=== PATIENT | female | born 1960 | race Caucasian/White ===

== ENCOUNTER 2020-03-24 11:36 | Outpatient (REF) | payer OTHER, SELFPAY ==
[2020-03-24 12:26] LABS: Hematocrit 42.7 % (37-47); Hemoglobin 14.1 g/dl (12.0-16.0); Mean Corpuscular Hemoglobin 32.1 pg (27.0-33.0); Mean Corpuscular Volume 97.3 fL (80-98); Mean Platelet Volume 10.1 fL (9.4-12.3); Platelet Count 311 X10*3/uL (160-400); Red Blood Count 4.39 X10*6/uL (4.20-5.50); Red Cell Distribution Width 14.2 % (11.0-16.0); White Blood Count 7.5 X10*3/uL (4.8-10.8)
[2020-03-24 13:32] LABS: Alanine Aminotransferase 98 U/L (0-31); Albumin Level 4.7 g/dL (3.5-5.0); Alkaline Phosphatase 61 U/L (39-117); Anion Gap 14 (12-20); Aspartate Amino Transferase 53 U/L (5-31); Bilirubin Direct 0.3 mg/dL (0.0-0.5); Blood Urea Nitrogen 19 mg/dL (9-16); Calcium 9.7 mg/dL (8.4-10.2); Carbon Dioxide 27 mmol/L (22-29); Chloride 105 mmol/L (96-108); Cholesterol 157 mg/dL; Estimated Glomerular Filt Rate 53; Glucose Fasting 91 mg/dL (60-99); HDL Cholesterol 56 mg/dL; LDL Cholesterol Calculated 83 mg/dl; Magnesium 2.3 mg/dL (1.6-2.6); Potassium 4.7 mmol/l (3.3-5.1); Sodium 141 mmol/L (135-145); Total Protein 7.4 g/dL (6.5-8.0); Triglycerides 90 mg/dL
[2020-03-24 13:56] LABS: Thyroid Stimulating Hormone 14.64 mIU/mL (0.32-4.0); Vitamin D 25-OH Total 32.3 ng/mL (>30)
== END 2020-03-24 11:37 | disposition home or self-care (01) ==
LOC: HO.LAB 11:36
DX: R53.83 Other fatigue (principal); E78.5 Hyperlipidemia, unspecified; I10 Essential (primary) hypertension
CPT/HCPCS: 36415; 80053; 80061; 80076; 82248; 82306; 83735; 84439; 84443; 85027

== ENCOUNTER 2020-04-22 12:16 | Outpatient (REF) | payer OTHER, SELFPAY ==
[2020-04-22 14:28] LABS: Free T4 (Free Thyroxine) 1.56 ng/dL (0.71-1.85)
== END 2020-04-22 12:17 | disposition home or self-care (01) ==
LOC: HO.LAB 12:16
DX: E03.9 Hypothyroidism, unspecified (principal)
CPT/HCPCS: 84439; 84443

== ENCOUNTER 2021-01-09 10:08 | Outpatient (REF) | payer OTHER, SELFPAY ==
[2021-01-09 11:33] LABS: MANUAL DIFF FLAG NO
[2021-01-09 11:48] LABS: Basophils Percent Auto 0.2 % (0-2); Eosinophils Absolute Auto 0.1 X10*3/uL (0.0-0.4); Eosinophils Percent Auto 1.6 % (0-4); Hematocrit 44.3 % (37-47); Hemoglobin 14.2 g/dl (12.0-16.0); Imm Gran Abs Auto 0.01 X10*3/uL (0.00-0.03); Imm Gran Pct Auto 0.2 % (0.0-0.4); Lymphocytes Percent Auto 31.4 % (20-40); Mean Corpuscular HGB Conc 32.1 g/dl (31.0-35.0); Mean Corpuscular Hemoglobin 30.9 pg (27.0-33.0); Mean Corpuscular Volume 96.3 fL (80-98); Mean Platelet Volume 10.4 fL (9.4-12.3); Monocytes Absolute Auto 0.6 X10*3/uL (0.1-1.2); Neutrophils Absolute Auto 3.6 X10*3/uL (2.0-8.3); Neutrophils Percent Auto 56.6 % (45-73); Platelet Count 284 X10*3/uL (160-400); Red Cell Distribution Width 13.3 % (11.0-16.0); White Blood Count 6.3 X10*3/uL (4.8-10.8)
[2021-01-09 12:31] LABS: Alanine Aminotransferase 43 U/L (0-31); Albumin Level 4.4 g/dL (3.5-5.0); Alkaline Phosphatase 86 U/L (39-117); Anion Gap 15 (12-20); Aspartate Amino Transferase 26 U/L (5-31); Bilirubin Total 0.6 mg/dL (0.0-1.0); Blood Urea Nitrogen 15 mg/dL (9-16); Calcium 9.5 mg/dL (8.4-10.2); Carbon Dioxide 26 mmol/L (22-29); Chloride 106 mmol/L (96-108); Cholesterol 157 mg/dL; Estimated Glomerular Filt Rate > 60; Glucose Fasting 90 mg/dL (60-99); HDL Cholesterol 56 mg/dL; LDL Cholesterol Calculated 86 mg/dl; Potassium 4.5 mmol/L (3.3-5.1); Sodium 142 mmol/L (135-145); Triglycerides 77 mg/dL
[2021-01-09 12:52] LABS: Thyroid Stimulating Hormone 0.04 uIU/mL (0.32-4.0)
== END 2021-01-09 10:09 | disposition home or self-care (01) ==
LOC: HO.LAB 10:08
PROVIDERS: PCP Internal Medicine; Visit Provider Internal Medicine
DX: Z00.00 Encounter for general adult medical examination without abnormal findings (principal); E03.9 Hypothyroidism, unspecified; E11.9 Type 2 diabetes mellitus without complications
CPT/HCPCS: 36415; 80053; 80061; 84443; 85025

== ENCOUNTER 2021-02-27 11:04 | Outpatient (REF) | payer OTHER, SELFPAY ==
--- NOTE | ~2021-02-27 | CT_ITS ---
EXAMINATION: CT HEAD WITHOUT CONTRAST CLINICAL INFORMATION: Altered mental status. COMPARISON: CT brain 08/11/2013 TECHNIQUE: Contiguous axial imaging was performed from the skull base to vertex without intravenous administration of contrast. This CT examination was performed using dose optimization techniques as appropriate, variously including the following: *Automated exposure control *Adjustment of mA and/or kV according to patient size (this includes techniques or standardized protocols for targeted exams where dose is matched to indication/reason for exam; i.e. extremities or head) *Use of iterative reconstruction technique DLP: 679. mGy-cm FINDINGS: There is no evidence of acute intracranial hemorrhage or territorial infarction. No abnormal mass effect or midline shift is seen. Harper to white matter differentiation is well preserved. No extra-axial fluid collections are identified. The ventricles are normal in size. There is no abnormal attenuation within the brain parenchyma. The osseous structures and soft tissues are normal. The mastoid air cells and visualized portions of the paranasal sinuses are well aerated. CT/CT head/brain wo con IMPRESSION: No acute intracranial process seen.
== END 2021-02-27 11:05 | disposition home or self-care (01) ==
LOC: HO.CT 11:04
PROVIDERS: Visit Provider Internal Medicine
DX: R41.82 Altered mental status, unspecified (principal)
CPT/HCPCS: 70450

== ENCOUNTER 2021-03-07 10:47 | Emergency (ER) | payer OTHER, SELFPAY ==
--- NOTE | ~2021-03-07 | CT_ITS ---
EXAMINATION: CT BRAIN AND CT CERVICAL SPINE WITHOUT CONTRAST. CLINICAL INFORMATION: Fall. COMPARISON: None TECHNIQUE: 5 mm thin axial and reformatted 2 mm thin sagittal and coronal images of brain were obtained. Subsequently 3 mm thin axial and reformatted 2 mm thin sagittal coronal images of cervical spine were obtained. DLP 900. FINDINGS: Brain: There is no acute intra-axial, extra-axial bleed, masses or midline shift. There is no acute infarction in evolution. There is no acute infarction evolution. The lateral ventricles are symmetrical in size and configuration without enlargement. Bone windows reveal no calvarial abnormality. Bilateral paranasal sinuses and mastoid air cells are well-aerated. There is no scalp soft tissue abnormality. Cervical spine: There is mild straightening of cervical lordosis. The vertebral heights, alignment is normal. There is mild loss of C4-C5 and C5-C6 disc heights with posterior spondylosis. Rest the disc heights are normal. The craniovertebral junction and C1-C2 alignment is normal. There is no visible acute fracture, dislocation or subluxation. The prevertebral and paravertebral soft tissues are normal. No abnormal size neck lymph nodes seen. Submandibular and parotid glands are symmetrical. The airway is widely patent. The lung apices are clear. CT/CT cervical spine wo con IMPRESSION: No acute intracranial process seen. There is no acute fracture, dislocation or subluxation seen. There is mild spondylosis and mild degenerative disc changes at C4-C5 and C5-C6 disc levels.
--- NOTE | ~2021-03-07 | CT_ITS ---
EXAMINATION: CT BRAIN AND CT CERVICAL SPINE WITHOUT CONTRAST. CLINICAL INFORMATION: [place]. COMPARISON: None TECHNIQUE: 5 mm thin axial and reformatted 2 mm thin sagittal and coronal images of brain were obtained. Subsequently 3 mm thin axial and reformatted 2 mm thin sagittal coronal images of cervical spine were obtained. DLP 900. FINDINGS: Brain: There is no acute intra-axial, extra-axial bleed, masses or midline shift. There is no acute infarction in evolution. There is no acute infarction evolution. The lateral ventricles are symmetrical in size and configuration without enlargement. Bone windows reveal no calvarial abnormality. Bilateral paranasal sinuses and mastoid air cells are well-aerated. There is no scalp soft tissue abnormality. Cervical spine: There is mild straightening of cervical lordosis. The vertebral heights, alignment is normal. There is mild loss of C4-C5 and C5-C6 disc heights with posterior spondylosis. Rest the disc heights are normal. The craniovertebral junction and C1-C2 alignment is normal. There is no visible acute fracture, dislocation or subluxation. The prevertebral and paravertebral soft tissues are normal. No abnormal size neck lymph nodes seen. Submandibular and parotid glands are symmetrical. The airway is widely patent. The lung apices are clear. CT/CT head/brain wo con IMPRESSION: No acute intracranial process seen. There is no acute fracture, dislocation or subluxation seen. There is mild spondylosis and mild degenerative disc changes at C4-C5 and C5-C6 disc levels.
[2021-03-07 11:00] VITALS: BP 101/63; BP 74/00; PULSE 67; PULSE 71; RESP 16; TEMP 36.6; O2SAT 100; BMI 30.8
--- NOTE | 2021-03-07 11:11 | ECG_ITS ---
Test Reason : DIZZINESS Blood Pressure : / mmHG Vent. Rate : 066 BPM Atrial Rate : 066 BPM P-R Int : 176 ms QRS Dur : 088 ms QT Int : 448 ms P-R-T Axes : 046 -43 -30 degrees QTc Int : 469 ms Normal sinus rhythm Left axis deviation Moderate voltage criteria for LVH, may be normal variant Nonspecific ST and T wave abnormality Prolonged QT Abnormal ECG No previous ECGs available Referred By: Laurie Jones Electronically Signed By:EDA SAN
--- NOTE | 2021-03-07 11:13 | ED.SYNCOPE ---
HPI - Syncope General Chief Complaint: Dizziness Stated Complaint: hypotension Time Seen by Provider: 03/07/21 11:03 Source: patient and EMS Mode of arrival: EMS Limitations: no limitations History of Present Illness complaint: almost passed out and collapsed Onset (ago): minute(s) -: minutes(s) Description of event: post-event confusion (difficulty finding words) Prodromal symptoms: vision changes, lightheaded and other (diffuse weakness) Witnessed: Yes - by Bystander Context: standing up Injuries sustained associated with event: none Current symptoms: other (feels better but reports for the last week she has been dealing with low back pain and a mild headache) Treatments prior to arrival: IV fluids (EMS notes initial BP in 70s now up to 100 after 200mL of NS) Related Data Home Medications Medication Instructions Recorded Confirmed zolpidem 10 mg tablet 10 mg PO BEDTIME PRN 07/26/20 01/16/21 Previous Rx's Medication Instructions Recorded duloxetine 20 mg capsule,delayed 20 mg PO DAILY #90 cap 07/29/20 release ezetimibe 10 mg tablet 10 mg PO DAILY #90 tab 08/10/20 levothyroxine 150 mcg tablet 150 mcg PO DAILY #90 tab 08/11/20 atorvastatin 80 mg tablet 80 mg PO DAILY #90 tab 12/06/20 clonazepam 0.5 mg tablet 0.5 mg PO BID #60 tab 02/03/21 naproxen 500 mg tablet (Naprosyn) 500 mg PO BID PRN #60 tab 03/06/21 Allergies Allergy/AdvReac Type Severity Reaction Status Date / Time No Known Allergies Allergy Verified 01/16/21 13:50 Review of Systems Review of Systems: Constitutional : No Weight loss, No Fever, No Chills, No Fatigue, No Malaise ENT/Mouth : No sore throat, No Rhinorrhea Eyes: No Eye Pain, No Swelling, No Redness Cardiovascular : No Chest Pain, No SOB, No Dyspnea on Exertion, No Orthopnea, No Edema, No Palpitations Respiratory : No Cough, No Sputum, No Wheezing Gastrointestinal : No Nausea, No Vomiting, No Diarrhea, No Constipation, No abdominal Pain, No Hematochezia, No Melena Genitourinary : No Dysuria, No Urinary Frequency, No Hematuria, Musculoskeletal : No joint pain, No Myalgias, No Joint Swelling, pos back pain Skin : No Skin Lesions, No rash Neuro :pos Weakness, No Numbness, No Dizziness, No Headache, pos near syncope Psych : No Anxiety/Panic, No Depression Heme/Lymph: No Bruising, No Bleeding,No Lymphadenopathy Endocrine : No Polyuria, No Polydipsia All other systems reviewed and are negative [facility] Past Medical History Attestation statement: The following information was validated with the patient. Medical History Hyperlipidemia Hypothyroidism Surgical History History of thyroidectomy Family History Family History (Updated 01/16/21 @ 13:49 by Flor Cote [place]) Father No problems noted. Mother No problems noted. Social History Social History Housing: House Alcohol intake: current Alcohol intake frequency: a few times a week Patient Tobacco Use Status: Current everyday Tobacco user Tobacco use type: Smokeless Tobacco e-Cigarette/Vaping Use: Currently Using Second Hand Smoke Exposure: No Use of substances other than those prescribed or required for medical reasons: No Advance Directives: Yes Advance Directives Information Provided: Yes Advance Directives on File: No service: No Current occupational status: unemployed Physical Exam Vital Signs: Vital Signs: Last Vital Signs Temp 95.1 F L 03/07/21 13:50 Pulse 65 03/07/21 13:50 Resp 12 03/07/21 13:50 BP 93/62 03/07/21 13:50 Pulse Ox 100 03/07/21 12:00 Body Mass Index 30.8 Appearance: appears drowsy Oriented X3. No acute distress. Eyes: Pupils equal, round and reactive to light. ENT: Pharynx normal. Neck: Normal inspection. Neck supple. collar removed negative for pain CVS: Normal heart rate and rhythm. Pulses normal. Respiratory: No respiratory distress. Breath sounds normal. Abdomen: Soft and non-tender. Skin: Skin warm and dry. Normal skin color. Normal skin turgor. Extremities: No lower extremity edema. No calf ttp Neuro: Oriented X 3. No motor deficit. No sensory deficit. NIH Stroke Scale Internal: Initial- Upon Arrival Level of Consciousness: Alert Level of Consciousness Questions: Answers both questions correctly Level of Consciousness Commands: Performs both tasks correctly Best Gaze: Normal Visual: No visual loss Facial Palsy: Normal Motor Arm (Right): No drift Motor Arm (Left): No drift Motor Leg (Right): No drift Motor Leg (Left): No drift Limb Ataxia: Absent Sensory: Normal Best Language: No aphasia Dysarthia: Normal Extinction and Inattention: No abnormality Score: 0 Course Course Course Narrative: patient's now notes that she might have taken her daughter's medications - 400mg seroquel, amantadine, topiramate, ativan. The is going to go home and see if pills are missing from her daughter's pill box confirms the patient accidentally took her daughter's saturday night pills - seroquel 400mg, topiramate 100, ativan 1, lamictal 150 Patient placed in physician observation at 126pm. The indication for observation is that the patient needs more time to metabolize medications. At this time the patient is well developed well nourished, lungs clear, CV RRR, abd nontender, neuro is intact. signed out pending improvement MDM - Syncope MDM Narrative Medical decision making narrative: 60 yo female with hx of HLD, hypothyroidism, on chronic clonazepam comes in with c/o near syncope with prodrome then found to have low BP as well as her speech was slow but she is fluent now and has no deficits. She does appear sedated. At this time labs, EKG, IVF, CT head/neck ordered. Unsure if this is medication related. Lab Data Result diagrams: 03/07/21 11:32 03/07/21 11:32 Labs: Lab Results 03/07/21 03/07/21 03/07/21 Range/Units 11:32 11:32 11:32 WBC 4.8 (4.8-10.8) X10*3/uL RBC 4.14 L (4.20-5.50) X10*6/uL Hgb 12.9 (12.0-16.0) g/dl Hct 39.8 (37-47) % MCV 96.1 (80-98) fL MCH 31.2 (27.0-33.0) pg MCHC 32.4 (31.0-35.0) g/dl RDW 12.8 (11.0-16.0) % Plt Count 287 (160-400) X10*3/uL MPV 9.9 (9.4-12.3) fL Immature Gran % (Auto) 0.2 (0.0-0.4) % Neut % (Auto) 67.2 (45-73) % Lymph % (Auto) 22.2 (20-40) % [place] % (Auto) 7.1 (2-11) % Eos % (Auto) 3.1 (0-4) % Baso % (Auto) 0.2 (0-2) % Lymph # (Auto) 1.1 L (1.2-4.9) X10*3/uL [place] # (Auto) 0.3 (0.1-1.2) X10*3/uL Eos # (Auto) 0.2 (0.0-0.4) X10*3/uL Baso # (Auto) 0.0 (0.0-0.2) X10*3/uL Abs Immat Gran (auto) 0.01 (0.00-0.03) X10*3/uL Absolute Neuts (auto) 3.2 (2.0-8.3) X10*3/uL Absolute Nucleated RBC 0.000 (0.0-0.012) X10*3/uL Nucleated RBC % (auto) 0.0 (0.0-0.2) /100WBC Sodium 141 (135-145) mmol/L Potassium 4.5 (3.3-5.1) mmol/L Chloride 109 H (96-108) mmol/L Carbon Dioxide 25 (22-29) mmol/L Anion Gap 12 (12-20) BUN 11 (9-16) mg/dL Creatinine 0.86 (0.5-1.4) mg/dL Estim Creat Clear Calc 67.3 Estimated GFR > 60 Random Glucose 120 H (60-115) mg/dL Calcium 9.3 (8.4-10.2) mg/dL Magnesium 2.2 (1.6-2.6) mg/dL Total Bilirubin 0.9 (0.0-1.0) mg/dL Direct Bilirubin 0.3 (0.0-0.5) mg/dL AST 17 (5-31) U/L ALT 29 (0-31) U/L Alkaline Phosphatase 73 (39-117) U/L Total Creatine Kinase 55 (26-140) U/L Troponin I High Sens (<3.5-17.0) ng/L Total Protein 6.5 (6.5-8.0) g/dL Albumin 4.1 (3.5-5.0) g/dL Lipase 29 (8-78) U/L Urine Color Urine Appearance Urine pH (5.0-8.0) Ur Specific [place] (1.005-1.025) Urine Protein (NEG-TRACE) MG/DL Urine Glucose (UA) (NEG) MG/DL Urine Ketones (NEG) MG/DL Urine Blood (NEG) Urine Nitrite (NEG) Ur Leukocyte Esterase (NEG) Urine RBC (0) /HPF Urine WBC (0-4) /HPF Ur Squamous Epith Cells /LPF Amorphous Sediment /LPF Urine Bacteria /LPF Urine Opiates Screen (Not Detect) Urine Fentanyl Screen (Not Detect) Ur Barbiturates Screen (Not Detect) Ur Phencyclidine Scrn (Not Detect) Ur Amphetamines Screen (Not Detect) U Benzodiazepines Scrn (Not Detect) Urine Cocaine Screen (Not Detect) U Marijuana (THC) Screen (Not Detect) Ethyl Alcohol mg/dL COVID-19 (MARIAM) Negative (Negative) COVID-19 Clin Com See Note 03/07/21 03/07/21 03/07/21 Range/Units 11:32 11:32 12:41 WBC (4.8-10.8) X10*3/uL RBC (4.20-5.50) X10*6/uL Hgb (12.0-16.0) g/dl Hct (37-47) % MCV (80-98) fL MCH (27.0-33.0) pg MCHC (31.0-35.0) g/dl RDW (11.0-16.0) % Plt Count (160-400) X10*3/uL MPV (9.4-12.3) fL Immature Gran % (Auto) (0.0-0.4) % Neut % (Auto) (45-73) % Lymph % (Auto) (20-40) % [place] % (Auto) (2-11) % Eos % (Auto) (0-4) % Baso % (Auto) (0-2) % Lymph # (Auto) (1.2-4.9) X10*3/uL [place] # (Auto) (0.1-1.2) X10*3/uL Eos # (Auto) (0.0-0.4) X10*3/uL Baso # (Auto) (0.0-0.2) X10*3/uL Abs Immat Gran (auto) (0.00-0.03) X10*3/uL Absolute Neuts (auto) (2.0-8.3) X10*3/uL Absolute Nucleated RBC (0.0-0.012) X10*3/uL Nucleated RBC % (auto) (0.0-0.2) /100WBC Sodium (135-145) mmol/L Potassium (3.3-5.1) mmol/L Chloride (96-108) mmol/L Carbon Dioxide (22-29) mmol/L Anion Gap (12-20) BUN (9-16) mg/dL Creatinine (0.5-1.4) mg/dL Estim Creat Clear Calc Estimated GFR Random Glucose (60-115) mg/dL Calcium (8.4-10.2) mg/dL Magnesium (1.6-2.6) mg/dL Total Bilirubin (0.0-1.0) mg/dL Direct Bilirubin (0.0-0.5) mg/dL AST (5-31) U/L ALT (0-31) U/L Alkaline Phosphatase (39-117) U/L Total Creatine Kinase (26-140) U/L Troponin I High Sens < 3.5 (<3.5-17.0) ng/L Total Protein (6.5-8.0) g/dL Albumin (3.5-5.0) g/dL Lipase (8-78) U/L Urine Color YELLOW Urine Appearance HAZY Urine pH 7.0 (5.0-8.0) Ur Specific [place] 1.010 (1.005-1.025) Urine Protein NEG (NEG-TRACE) MG/DL Urine Glucose (UA) NEG (NEG) MG/DL Urine Ketones NEG (NEG) MG/DL Urine Blood NEG (NEG) Urine Nitrite NEG (NEG) Ur Leukocyte Esterase 1+ H (NEG) Urine RBC 0 (0) /HPF Urine WBC 1-4 (0-4) /HPF Ur Squamous Epith Cells 1+ /LPF Amorphous Sediment 1+ /LPF Urine Bacteria TRACE /LPF Urine Opiates Screen (Not Detect) Urine Fentanyl Screen (Not Detect) Ur Barbiturates Screen (Not Detect) Ur Phencyclidine Scrn (Not Detect) Ur Amphetamines Screen (Not Detect) U Benzodiazepines Scrn (Not Detect) Urine Cocaine Screen (Not Detect) U Marijuana (THC) Screen (Not Detect) Ethyl Alcohol < 10 mg/dL COVID-19 ([facility]IAM) (Negative) COVID-19 Clin Com 03/07/21 Range/Units 12:41 WBC (4.8-10.8) X10*3/uL RBC (4.20-5.50) X10*6/uL Hgb (12.0-16.0) g/dl Hct (37-47) % MCV (80-98) fL MCH (27.0-33.0) pg MCHC (31.0-35.0) g/dl RDW (11.0-16.0) % Plt Count (160-400) X10*3/uL MPV (9.4-12.3) fL Immature Gran % (Auto) (0.0-0.4) % Neut % (Auto) (45-73) % Lymph % (Auto) (20-40) % [place] % (Auto) (2-11) % Eos % (Auto) (0-4) % Baso % (Auto) (0-2) % Lymph # (Auto) (1.2-4.9) X10*3/uL [place] # (Auto) (0.1-1.2) X10*3/uL Eos # (Auto) (0.0-0.4) X10*3/uL Baso # (Auto) (0.0-0.2) X10*3/uL Abs Immat Gran (auto) (0.00-0.03) X10*3/uL Absolute Neuts (auto) (2.0-8.3) X10*3/uL Absolute Nucleated RBC (0.0-0.012) X10*3/uL Nucleated RBC % (auto) (0.0-0.2) /100WBC Sodium (135-145) mmol/L Potassium (3.3-5.1) mmol/L Chloride (96-108) mmol/L Carbon Dioxide (22-29) mmol/L Anion Gap (12-20) BUN (9-16) mg/dL Creatinine (0.5-1.4) mg/dL Estim Creat Clear Calc Estimated GFR Random Glucose (60-115) mg/dL Calcium (8.4-10.2) mg/dL Magnesium (1.6-2.6) mg/dL Total Bilirubin (0.0-1.0) mg/dL Direct Bilirubin (0.0-0.5) mg/dL AST (5-31) U/L ALT (0-31) U/L Alkaline Phosphatase (39-117) U/L Total Creatine Kinase (26-140) U/L Troponin I High Sens (<3.5-17.0) ng/L Total Protein (6.5-8.0) g/dL Albumin (3.5-5.0) g/dL Lipase (8-78) U/L Urine Color Urine Appearance Urine pH (5.0-8.0) Ur Specific [place] (1.005-1.025) Urine Protein (NEG-TRACE) MG/DL Urine Glucose (UA) (NEG) MG/DL Urine Ketones (NEG) MG/DL Urine Blood (NEG) Urine Nitrite (NEG) Ur Leukocyte Esterase (NEG) Urine RBC (0) /HPF Urine WBC (0-4) /HPF Ur Squamous Epith Cells /LPF Amorphous Sediment /LPF Urine Bacteria /LPF Urine Opiates Screen Not Detected (Not Detect) Urine Fentanyl Screen Not Detected (Not Detect) Ur Barbiturates Screen Not Detected (Not Detect) Ur Phencyclidine Scrn Not Detected (Not Detect) Ur Amphetamines Screen Not Detected (Not Detect) U Benzodiazepines Scrn Not Detected (Not Detect) Urine Cocaine Screen Not Detected (Not Detect) U Marijuana (THC) Screen Not Detected (Not Detect) Ethyl Alcohol mg/dL COVID-19 ([facility]IAM) (Negative) COVID-19 [employer]TM[employer] ECG Data Attestation: I personally reviewed and interpreted this ECG as follows: ECG interpretation date: 03/07/21 ECG interpretation time: 11:29 Interpretation: Rate: 66 Rhythm: NSR [place]: left, LVH Normal P waves. Normal [place]. Normal QRS complex. ST T wave : inverted in V3-V4 and III and aVF qTC: prolonged slightly prior studies: no acute ischemia The study has been interpreted contemporaneously by me. . Discharge Plan Discharge Clinical Impression: Accidental overdose Qualifiers: Encounter type: initial encounter Qualified Code(s): T50.901A - Poisoning by unspecified drugs, medicaments and biological substances, accidental (unintentional), initial encounter Instructions: Adult Overdose (ED) Additional Instructions: return to ED for any worsening symptoms or concerns stay with responsible adult tonight Prescriptions: No Action duloxetine 20 mg capsule,delayed release(DR/EC) 20 mg PO DAILY Qty: 90 RF: 8 ezetimibe 10 mg tablet 10 mg PO DAILY Qty: 90 RF: 8 levothyroxine 150 mcg tablet 150 mcg PO DAILY Qty: 90 RF: 8 atorvastatin 80 mg tablet 80 mg PO DAILY Qty: 90 RF: 8 clonazepam 0.5 mg tablet 0.5 mg PO BID Qty: 60 RF: 5 naproxen [Naprosyn] 500 mg tablet 500 mg PO BID PRN (Reason: pain) Qty: 60 RF: 2 zolpidem 10 mg tablet 10 mg PO BEDTIME PRNRF: 0
[2021-03-07 11:36] LABS: MANUAL DIFF FLAG NO
[2021-03-07 11:38] LABS: Basophils Percent Auto 0.2 % (0-2); Eosinophils Absolute Auto 0.2 X10*3/uL (0.0-0.4); Eosinophils Percent Auto 3.1 % (0-4); Hematocrit 39.8 % (37-47); Hemoglobin 12.9 g/dl (12.0-16.0); Imm Gran Abs Auto 0.01 X10*3/uL (0.00-0.03); Imm Gran Pct Auto 0.2 % (0.0-0.4); Lymphocytes Absolute Auto 1.1 X10*3/uL (1.2-4.9); Lymphocytes Percent Auto 22.2 % (20-40); Mean Corpuscular HGB Conc 32.4 g/dl (31.0-35.0); Mean Corpuscular Hemoglobin 31.2 pg (27.0-33.0); Mean Corpuscular Volume 96.1 fL (80-98); Mean Platelet Volume 9.9 fL (9.4-12.3); Monocytes Absolute Auto 0.3 X10*3/uL (0.1-1.2); Monocytes Percent Auto 7.1 % (2-11); Neutrophils Absolute Auto 3.2 X10*3/uL (2.0-8.3); Neutrophils Percent Auto 67.2 % (45-73); Platelet Count 287 X10*3/uL (160-400); Red Blood Count 4.14 X10*6/uL (4.20-5.50); Red Cell Distribution Width 12.8 % (11.0-16.0); White Blood Count 4.8 X10*3/uL (4.8-10.8)
[2021-03-07 11:50] LABS: Ethanol < 10 mg/dL
[2021-03-07 11:53] LABS: COVID-19 Test Negative (Negative)
[2021-03-07 11:55] LABS: Alanine Aminotransferase 29 U/L (0-31); Albumin Level 4.1 g/dL (3.5-5.0); Alkaline Phosphatase 73 U/L (39-117); Anion Gap 12 (12-20); Aspartate Amino Transferase 17 U/L (5-31); Bilirubin Direct 0.3 mg/dL (0.0-0.5); Bilirubin Total 0.9 mg/dL (0.0-1.0); Blood Urea Nitrogen 11 mg/dL (9-16); Calcium 9.3 mg/dL (8.4-10.2); Carbon Dioxide 25 mmol/L (22-29); Chloride 109 mmol/L (96-108); Creatinine Clr Calc Pharmacy 67.3; Estimated Glomerular Filt Rate > 60; Glucose Random 120 mg/dL (60-115); Lipase 29 U/L (8-78); Magnesium 2.2 mg/dL (1.6-2.6); Potassium 4.5 mmol/L (3.3-5.1); Sodium 141 mmol/L (135-145); Total Protein 6.5 g/dL (6.5-8.0)
[2021-03-07 12:00] VITALS: BP 103/65; PULSE 80; RESP 16; O2SAT 100
[2021-03-07 12:01] LABS: Troponin-I High Sensitivity < 3.5 ng/L (<3.5-17.0)
[2021-03-07] MEDS: 0.9 % Sodium Chloride 1,000 ML 999 ML IVCONT ×2 (12:40→14:21)
[2021-03-07 12:52] LABS: Appearance Urine HAZY; Color Urine YELLOW; Glucose Urine UA NEG (NEG); Leukocyte Esterase Urine 1+ (NEG); Nitrite Urine NEG (NEG); UACC Culture Trigger YES; Urine Blood NEG (NEG); Urine Ketones NEG (NEG); Urine Protein NEG (NEG-TRACE)
[2021-03-07 13:07] LABS: Amphetamine Screen Urine Not Detected (Not Detect); Barbiturates, Urine Not Detected (Not Detect); Benzodiazepines Screen Urine Not Detected (Not Detect); Cannabinoid Screen Urine Not Detected (Not Detect); Cocaine Screen Urine Not Detected (Not Detect); Fentanyl, urine Not Detected (Not Detect); Opiate Screen Urine Not Detected (Not Detect); Phencyclidine Screen Urine Not Detected (Not Detect)
[2021-03-07 13:08] LABS: Amorphous Sediment Urine 1+ /LPF; Bacteria Urine TRACE /LPF; RBC Urine 0 /HPF (0); Squamous Epithelial Cell Urine 1+ /LPF
[2021-03-07 13:50] VITALS: BP 93/62; PULSE 65; RESP 12; TEMP 35.1
[2021-03-07 16:00] VITALS: BP 98/50; PULSE 70; RESP 16; TEMP 36.6; O2SAT 99
[2021-03-07 17:27] VITALS: BP 107/62; PULSE 76; RESP 18; O2SAT 95
--- NOTE | 2021-03-07 17:27 | PC.NURSE ---
REPORTS AMBULATING TO BR W/O DIFFICULTY OR DIZZINESS. IS ALERT SKIN PWD, NSR ON MONITOR. REQUESTING DISCHARGE.
== END 2021-03-07 18:43 | disposition home or self-care (01) ==
PROVIDERS: Emergency Provider Emergency Medicine; PCP Internal Medicine
DX: R42 Dizziness and giddiness (principal); I95.9 Hypotension, unspecified; M54.2 Cervicalgia; F17.290 Nicotine dependence, other tobacco product, uncomplicated; Z20.822 Contact with and (suspected) exposure to COVID-19; Z79.899 Other long term (current) drug therapy
CPT/HCPCS: 36415; 70450; 72125; 80048; 80076; 80307; 81001; 82077; 82550; 83690; 83735; 84484; 85025; 87086; 87147; 87635; 93005; 96360; 99284; 99285

== ENCOUNTER 2021-07-17 12:37 | Outpatient (REF) | payer OTHER, SELFPAY ==
[2021-07-17 13:05] LABS: MANUAL DIFF FLAG NO
[2021-07-17 13:21] LABS: Basophils Percent Auto 0.1 % (0-2); Eosinophils Absolute Auto 0.2 X10*3/uL (0.0-0.4); Eosinophils Percent Auto 2.5 % (0-4); Hematocrit 42.8 % (37.0-47.0); Hemoglobin 13.8 g/dl (12.0-16.0); Imm Gran Abs Auto 0.02 X10*3/uL (0.00-0.03); Imm Gran Pct Auto 0.3 % (0.0-0.4); Lymphocytes Absolute Auto 2.1 X10*3/uL (1.2-4.9); Lymphocytes Percent Auto 30.7 % (20-40); Mean Corpuscular HGB Conc 32.2 g/dl (31.0-35.0); Mean Corpuscular Hemoglobin 30.1 pg (27.0-33.0); Mean Corpuscular Volume 93.2 fL (80.0-98.0); Mean Platelet Volume 10.6 fL (9.4-12.3); Monocytes Absolute Auto 0.6 X10*3/uL (0.1-1.2); Monocytes Percent Auto 8.9 % (2-11); Neutrophils Percent Auto 57.5 % (45-73); Platelet Count 260 X10*3/uL (160-400); Red Blood Count 4.59 X10*6/uL (4.20-5.50); Red Cell Distribution Width 13.4 % (11.0-16.0); White Blood Count 6.9 X10*3/uL (4.8-10.8)
[2021-07-17 13:46] LABS: Alanine Aminotransferase 92 U/L (0-31); Albumin Level 4.3 g/dL (3.5-5.0); Alkaline Phosphatase 91 U/L (39-117); Anion Gap 12 (12-20); Aspartate Amino Transferase 44 U/L (5-31); Bilirubin Total 1.1 mg/dL (0.0-1.0); Blood Urea Nitrogen 13 mg/dL (9-16); Calcium 9.7 mg/dL (8.4-10.2); Carbon Dioxide 29 mmol/L (22-29); Chloride 106 mmol/L (96-108); Cholesterol 130 mg/dL; Estimated Glomerular Filt Rate > 60; Glucose Fasting 100 mg/dL (60-99); HDL Cholesterol 39 mg/dL; LDL Cholesterol Calculated 76 mg/dl; Potassium 4.5 mmol/L (3.3-5.1); Sodium 142 mmol/L (135-145); Triglycerides 77 mg/dL
[2021-07-17 14:07] LABS: Thyroid Stimulating Hormone 0.02 uIU/mL (0.32-4.0)
== END 2021-07-17 12:38 | disposition home or self-care (01) ==
LOC: HO.LAB 12:37
PROVIDERS: PCP Internal Medicine; Visit Provider Internal Medicine
DX: Z00.00 Encounter for general adult medical examination without abnormal findings (principal); Z13.0 Encounter for screening for diseases of the blood and blood-forming organs and certain disorders involving the immune mechanism
CPT/HCPCS: 36415; 80053; 80061; 84443; 85025

== ENCOUNTER 2022-04-27 12:09 | Outpatient (REF) | payer OTHER, SELFPAY ==
[2022-04-27 14:07] LABS: Cholesterol 154 mg/dL; HDL Cholesterol 56 mg/dL; LDL Cholesterol Calculated 78 mg/dl; Thyroid Stimulating Hormone 0.02 uIU/mL (0.32-4.0); Triglycerides 102 mg/dL
== END 2022-04-27 12:10 | disposition home or self-care (01) ==
LOC: HO.LAB 12:09
PROVIDERS: PCP Internal Medicine; Visit Provider Internal Medicine
DX: E03.9 Hypothyroidism, unspecified (principal); E78.5 Hyperlipidemia, unspecified
CPT/HCPCS: 36415; 80061; 84443

== ENCOUNTER 2023-01-14 12:00 | Outpatient (REF) | payer OTHER, SELFPAY ==
[2023-01-14 12:30] LABS: MANUAL DIFF FLAG NO
[2023-01-14 14:35] LABS: Basophils Percent Auto 0.3 % (0-2); Eosinophils Absolute Auto 0.1 X10*3/uL (0.0-0.4); Eosinophils Percent Auto 1.7 % (0-4); Hematocrit 45.6 % (37.0-47.0); Imm Gran Abs Auto 0.02 X10*3/uL (0.00-0.03); Imm Gran Pct Auto 0.3 % (0.0-0.4); Lymphocytes Absolute Auto 1.6 X10*3/uL (1.2-4.9); Lymphocytes Percent Auto 23.9 % (20-40); Mean Corpuscular HGB Conc 32.9 g/dl (31.0-35.0); Mean Corpuscular Hemoglobin 32.5 pg (27.0-33.0); Mean Corpuscular Volume 98.7 fL (80.0-98.0); Mean Platelet Volume 9.8 fL (9.4-12.3); Monocytes Absolute Auto 0.5 X10*3/uL (0.1-1.2); Monocytes Percent Auto 7.1 % (2-11); Neutrophils Absolute Auto 4.3 x10*3/uL (2.0-8.3); Neutrophils Percent Auto 66.7 % (45-73); Platelet Count 333 X10*3/uL (160-400); Red Blood Count 4.62 X10*6/uL (4.20-5.50); Red Cell Distribution Width 14.6 % (11.0-16.0); White Blood Count 6.5 X10*3/uL (4.8-10.8)
[2023-01-14 15:27] LABS: Alanine Aminotransferase 55 U/L (0-31); Albumin Level 3.8 g/dL (3.5-5.0); Alkaline Phosphatase 57 U/L (39-117); Anion Gap 13 (12-20); Aspartate Amino Transferase 37 U/L (5-31); Bilirubin Total 0.7 mg/dL (0.0-1.0); Blood Urea Nitrogen 15 mg/dL (9-16); Calcium 8.9 mg/dL (8.4-10.2); Carbon Dioxide 28 mmol/L (22-29); Chloride 107 mmol/L (96-108); Cholesterol 199 mg/dL; Estimated Glomerular Filt Rate > 60; Glucose Fasting 87 mg/dL (60-99); HDL Cholesterol 58 mg/dL; LDL Cholesterol Calculated 121 mg/dl; Potassium 5.3 mmol/L (3.3-5.1); Sodium 143 mmol/L (135-145); Triglycerides 104 mg/dL
[2023-01-14 15:35] LABS: Thyroid Stimulating Hormone 4.43 uIU/mL (0.32-4.0)
== END 2023-01-14 12:01 | disposition home or self-care (01) ==
LOC: HO.LAB 12:00
PROVIDERS: PCP Internal Medicine; Visit Provider Internal Medicine
DX: E78.5 Hyperlipidemia, unspecified (principal); E03.9 Hypothyroidism, unspecified; D64.9 Anemia, unspecified; N28.9 Disorder of kidney and ureter, unspecified
CPT/HCPCS: 36415; 80053; 80061; 84443; 85025

== ENCOUNTER 2023-01-22 12:53 | Outpatient (AMB) | payer OTHER, SELFPAY ==
--- NOTE | 2023-01-22 12:54 | A.OFFPC_ITS ---
Vital Signs 01/22/23 12:56 Height 5 ft 2.5 in Weight 149 lb 8 oz BMI 26.9 BP 122/60 Blood Pressure Location Lt brachial Position Sitting Intake Visit Reasons: Annual exam Intake Note: Patient is here today for a physical. Global Climate Change Researcher Required: No Ceramic Coater Machine: Not Required per policy Accompanied by: Self / Same As Patient Allergies No Known Allergies Allergy (Verified 01/22/23 12:56) Medication List - Last Reconciled 01/22/23 by Jesus Vega MD atorvastatin 80 mg PO DAILY clomipramine 25 mg PO BEDTIME escitalopram oxalate 20 mg PO DAILY ezetimibe 10 mg PO DAILY levothyroxine 125 mcg PO DAILY naproxen (Naprosyn) 500 mg PO BID PRN Tobacco use date assessed: 01/22/23 Dental Screening Dental Screen Date: 01/22/23 Did you have a dental visit in the last 12 months?: Yes Did you have a dental problem in the last 6 months where you did not have access to dental care?: No Was dental information given to patient?: Patient has dentist HPI Annual exam HPI Details hyperlipidemia hypothyroidism and depression ON LICENSE OF [facility] Medical History (Updated 01/22/23 @ 13:30 by Jesus Vega MD) Hyperlipidemia Hypothyroidism Surgical History History of eye surgery History of thyroidectomy Family History Father No problems noted. Mother No problems noted. Family/Other Mental health disorder Social History Housing: House Alcohol intake: current Alcohol intake frequency: a few times a week Patient Tobacco Use Status: Current everyday Tobacco user Tobacco use type: Smokeless Tobacco e-Cigarette/Vaping Use: Currently Using Second Hand Smoke Exposure: No service: No Current occupational status: unemployed Cognitive needs: No Hearing needs: No Vision needs: Yes Questionnaire PHQ-9 Over the last 2 weeks, how often have you been bothered by any of the following problems? 1. Little interest or pleasure in doing things: nearly every day 2. Feeling down, depressed, or hopeless: several days 3. Trouble falling or staying asleep, or sleeping too much: nearly every day 4. Feeling tired or having little energy: nearly every day 5. Poor appetite or overeating: several days 6. Feeling bad about yourself - or that you are a failure or have let yourself or your family down: not at all 7. Trouble concentrating on things, such as reading the newspaper or watching television: not at all 8. Moving or speaking so slowly that other people could have noticed. Or the opposite - being so fidgety or restless that you have been moving around a lot more than usual: not at all 9. Thoughts that you would be better off or of hurting yourself in some way: not at all Total score: 11 Source: Developed by Drs. Paul Morgan, Eulalia Greco, Sincere Newell and colleagues, with an educational gentry from [employer]. Thrive Questionnaire Date Thrive assessed: 01/22/23 I am a: Patient What is your living situation today?: I have a steady place to live Within the past 12 months, did the food you bought not last and you didn't have the money to get more?: Never true Within the past 12 months, did you worry whether your food would run out before you got money to buy more?: Never true Do you have trouble paying for medicines?: No Do you have trouble getting transportation to medical appointments?: No Do you have trouble paying your heating and electricity bill?: No Do you have trouble taking care of your child, family member or friend?: No Do you have trouble with day-to-day activities such as bathing, preparing meals, shopping, managing finances, etc.?: No Are you currently unemployed and looking for a job?: No Are you interested in more education?: No Currently or been in a relationship where the following occur: no concerns reported AUDIT C Alcohol Use Questionnaire (AUDIT-C) 1. How often do you have a drink containing alcohol?: 2-3 times a week 2. How many drinks containing alcohol do you have on a typical day when you are drinking?: 1 or 2 Total Score: 3 JOEY-7 AMB Questionnaire JOEY-7 Date JOEY - 7 assessed: 01/22/23 Feeling nervous, anxious, or on edge: 3 = Nearly every day Not being able to stop or control worryin = Nearly every day Worrying too much about different things: 3 = Nearly every day Trouble relaxin = Several days Being so restless that it is hard to sit still: 0 = Not at all Becoming easily annoyed or irritable: 1 = Several days Feeling afraid as if something awful might happen: 3 = Nearly every day Total JOEY-7 score (0-4 normal; 5-9 mild; 10-14 moderate; 15-21 severe): 14 Source: Developed by Drs. Paul Morgan, Eulalia Greco, Sincere Newell and colleagues, with an educational gentry from [employer]. Review of Systems Const Denies chills, Denies fatigue, Denies headache(s) and Denies weight loss Eyes Denies change in vision, Denies diplopia and Denies eye pain ENT Denies vertigo, Denies dizziness, Denies headache(s) and Denies nasal discharge Card Denies chest pain, Denies rapid heart rate and Denies dyspnea on exertion Resp Denies chest congestion, Denies cough, Denies pain with cough and Denies dyspnea on exertion GI Denies abdominal pain, Denies hematochezia and Denies change in bowel habits Musc Denies myalgias, Denies arthralgias and Denies joint swelling Skin/Breast Denies lesions and Denies unusual bruising Neuro Denies vertigo, Denies dizziness, Denies headache(s) and Denies focal weakness Endo Denies fatigue Physical exam (Primary Care) Vital Signs: Last Vital Signs BP 122/60 01/22/23 12:56 BMI result Body Mass Index 26.9 Tobacco/Smoking Status: Tobacco use Status Tobacco use date assessed 01/22/23 01/22/23 13:02 Patient Tobacco Use Status Current everyday Tobacco 01/22/23 13:02 Tobacco use type Smokeless Tobacco 01/22/23 13:02 e-Cigarette/Vaping Use Currently Using 01/22/23 13:02 PHQ-9: PHQ-9 Score PHQ-9: Total score 11 01/22/23 13:02 Thrive Assessment: Date of Thrive Assessment Date Thrive assessed 01/22/23 01/22/23 13:02 Currently or been in a relationship where the following occur: no concerns reported Const General: cooperative, healthy appearing and no acute distress Orientation/consciousness: oriented to person, oriented to place and oriented to time HENGA Head: Yes normal to inspection, Yes normocephalic and Yes atraumatic Mouth: Normal oral and palatal mucosa present and tongue normal Throat: Yes posterior oropharynx normal and Yes uvula midline Eyes General: appearance normal, both eyes and all related structures Neck Neck: Yes normal visual inspection, Yes full ROM and Yes no lymphadenopathy Thyroid: Thyroid normal Carotids: normal carotid upstroke Chest Chest palpation & inspection: normal inspection of the chest Resp Effort & Inspection: normal respiratory effort and able to speak in complete sentences Auscultation: clear to auscultation bilaterally Cardio Jugular venous distension: no JVD Palpation: normal PMI Rate: regular rate Rhythm: regular rhythm Heart sounds: S1 normal heart sound present and S2 normal heart sound present GI Inspection: Yes normal to inspection Palpation (GI): Soft to palpation and No hepatosplenomegaly present Auscultation: normal bowel sounds General: Yes no CVA tenderness Back/Spine/Pelvis Back: no CVA tenderness Skin General skin exam: no rashes or lesions noted Neuro General: oriented to person, oriented to place and oriented to time Extrem General: Yes normal to inspection and Yes full ROM Assessment and Plan Assessment & Plan (1) Physical exam: Code(s): Z00.00 - Encounter for general adult medical examination without abnormal f indings Plan: stable (2) Depression: Code(s): F32.A - Depression, unspecified Plan: stable; per psych (3) Hyperlipidemia: Code(s): E78.5 - Hyperlipidemia, unspecified Plan: stable; same rx (4) Hypothyroidism: Code(s): E03.9 - Hypothyroidism, unspecified Plan: stable Orders: Orders Thyroid Stimulating Hormone Today E03.9 - Hypothyroidism, unspecified MM tomosynthesis screen imp BI Today Z12.31 - Encounter for screening mammogram for malignant neoplasm of breast ECG 12 lead EKG Today Z51.81 - Encounter for therapeutic drug level monitoring Referrals Gastroenterology Referral Z12.11 - Encounter for screening for malignant neoplasm of colon Coding Level of Care Code Est Pt Prev Care 40-64y(39516) Diagnoses Physical exam Z00.00 Depression F32.A Hyperlipidemia E78.5 Hypothyroidism E03.9
[2023-01-22 12:56] VITALS: BP 122/60; BMI 26.9
== END 2023-01-22 13:22 | disposition home or self-care (01) ==
PROVIDERS: PCP Internal Medicine; Visit Provider Internal Medicine
DX: Z00.00 Encounter for general adult medical examination without abnormal findings (principal); F32.A Depression, unspecified; E78.5 Hyperlipidemia, unspecified; E03.9 Hypothyroidism, unspecified
CPT/HCPCS: 99396

== ENCOUNTER → 2023-01-28 12:58 | Outpatient (REF) | payer OTHER, SELFPAY ==
--- NOTE | 2023-01-28 13:01 | ECG_ITS ---
Test Reason : Z51.81 Blood Pressure : / mmHG Vent. Rate : 092 BPM Atrial Rate : 092 BPM P-R Int : 162 ms QRS Dur : 136 ms QT Int : 382 ms P-R-T Axes : 046 -70 058 degrees QTc Int : 472 ms Normal sinus rhythm Right bundle branch block Left anterior fascicular block Bifascicular block Minimal voltage criteria for LVH, may be normal variant ( R in aVL ) Septal infarct , age undetermined Abnormal ECG When compared with ECG of 07-MAR-2021 11:19, (RBBB and left anterior fascicular block) is now Present Septal infarct is now Present Referred By: Jesus Vega Electronically Signed By:EDA SAN
== END ==
LOC: HO.CARD 12:58
PROVIDERS: PCP Internal Medicine; Visit Provider Internal Medicine
DX: Z51.81 Encounter for therapeutic drug level monitoring (principal)
CPT/HCPCS: 93005

== ENCOUNTER 2023-02-22 13:08 | Outpatient (REF) | payer OTHER, SELFPAY ==
--- NOTE | ~2023-02-22 | MM_ITS ---
EXAMINATION: MM SCREENING DIGITAL BREAST TOMOSYNTHESIS, BILATERAL CLINICAL INFORMATION: Screening. Asymptomatic. COMPARISON: Mammography: This study is compared with prior exams dating back to 2016. TECHNIQUE: Digital breast tomosynthesis is performed in both the craniocaudal and mediolateral oblique views along with computer-aided detection (CAD). Synthesized 2D images are generated from the tomosynthesis. FINDINGS: There are scattered areas of fibroglandular density (ACR BI-RADS breast composition Category b). There are no significant masses, abnormal calcifications, or other abnormalities. MM/MM tomosynthesis screening BI IMPRESSION: No mammographic evidence of malignancy. ASSESSMENT: BI-RADS BI-RADS 1 - Negative RECOMMENDATION: Routine annual mammography screening. 1 year F/U This examination should not preclude the clinical evaluation of a suspicious palpable abnormality. This patient's information was entered into a reminder system with a target due date for their next mammogram.
== END 2023-02-22 13:09 | disposition home or self-care (01) ==
LOC: HO.MAMMO 13:08
PROVIDERS: PCP Internal Medicine; Visit Provider Internal Medicine
DX: Z12.31 Encounter for screening mammogram for malignant neoplasm of breast (principal)
CPT/HCPCS: 77063; 77067

== ENCOUNTER → 2023-02-22 13:30 | Outpatient (BNV) | payer OTHER, SELFPAY | PROVIDERS: PCP Internal Medicine; Visit Provider Radiology Diagnostic Radiology | DX: Z12.31 Encounter for screening mammogram for malignant neoplasm of breast (principal) | CPT/HCPCS: 77063; 77067 ==

== ENCOUNTER 2023-03-19 12:49 | Outpatient (REF) | payer OTHER, SELFPAY | END 2023-03-19 12:50 | disposition home or self-care (01) | LOC: HO.LAB 12:49 | PROVIDERS: PCP Internal Medicine; Visit Provider Internal Medicine | DX: E03.9 Hypothyroidism, unspecified (principal) | CPT/HCPCS: 36415; 84443 ==

== ENCOUNTER 2023-04-08 13:02 | Outpatient (REF) | payer OTHER, SELFPAY ==
[2023-04-08 14:30] LABS: Thyroid Stimulating Hormone 0.59 uIU/mL (0.32-4.0)
== END 2023-04-08 13:03 | disposition home or self-care (01) ==
LOC: HO.LAB 13:02
PROVIDERS: PCP Internal Medicine; Visit Provider Internal Medicine
DX: E03.9 Hypothyroidism, unspecified (principal)
CPT/HCPCS: 36415; 84443

== ENCOUNTER 2023-04-12 12:46 | Outpatient (AMB) | payer OTHER, SELFPAY ==
[2023-04-12 12:48] VITALS: BP 110/60; PULSE 95; O2SAT 99; BMI 27.4
--- NOTE | 2023-04-12 12:48 | A.OFFPC_ITS ---
Vital Signs 04/12/23 12:48 Height 5 ft 2.5 in Weight 152 lb BMI 27.4 BP 110/60 Blood Pressure Location Lt brachial Position Sitting Pulse 95 Pulse Source Pulse Oximeter Pulse Oximetry (%) 99 Oxygen Delivery Method Room Air Intake Visit Reasons: Cataract surgery on L eye, 04/26 Global Implementation Manager Required: No Pegger Dobby Looms: Not Required per policy Accompanied by: Self / Same As Patient Allergies No Known Allergies Allergy (Verified 04/12/23 12:48) Medication List - Last Reconciled 04/12/23 by Jesus Vega MD atorvastatin 80 mg PO DAILY clomipramine 25 mg PO BEDTIME escitalopram oxalate 20 mg PO DAILY ezetimibe 10 mg PO DAILY levothyroxine 150 mcg PO DAILY naproxen (Naprosyn) 500 mg PO BID PRN Tobacco use date assessed: 01/22/23 Dental Screening Dental Screen Date: 04/12/23 Did you have a dental visit in the last 12 months?: Yes Did you have a dental problem in the last 6 months where you did not have access to dental care?: No Was dental information given to patient?: Patient has dentist HPI Cataract surgery on L eye, 04/26 HPI Details having cataracts repaired; has hyperlipidemia hypothyroidism and depression all stable [facility] Medical History Hypothyroidism Hyperlipidemia Surgical History History of eye surgery History of thyroidectomy Family History Father No problems noted. Mother No problems noted. Family/Other Mental health disorder Social History Housing: House Alcohol intake: current Alcohol intake frequency: a few times a week Patient Tobacco Use Status: Current everyday Tobacco user Tobacco use type: Smokeless Tobacco e-Cigarette/Vaping Use: Currently Using Second Hand Smoke Exposure: No service: No Current occupational status: unemployed Cognitive needs: No Hearing needs: No Vision needs: Yes Questionnaire PHQ-9 Over the last 2 weeks, how often have you been bothered by any of the following problems? 1. Little interest or pleasure in doing things: nearly every day 2. Feeling down, depressed, or hopeless: several days 3. Trouble falling or staying asleep, or sleeping too much: nearly every day 4. Feeling tired or having little energy: nearly every day 5. Poor appetite or overeating: several days 6. Feeling bad about yourself - or that you are a failure or have let yourself or your family down: not at all 7. Trouble concentrating on things, such as reading the newspaper or watching television: not at all 8. Moving or speaking so slowly that other people could have noticed. Or the opposite - being so fidgety or restless that you have been moving around a lot more than usual: not at all 9. Thoughts that you would be better off or of hurting yourself in some way: not at all Total score: 11 Depression Screening Interpretation: Positive Depression Screening Follow-up: Existing condition Depression Screening Done: Yes 25372 - PHQ-9 Billing: Yes Source: Developed by Drs. Paul Morgan, Eulalia Greco, Sincere Newell and colleagues, with an educational gentry from [employer]. Thrive Questionnaire Date Thrive assessed: 01/22/23 AUDIT C Alcohol Use Questionnaire (AUDIT-C) 1. How often do you have a drink containing alcohol?: 2-3 times a week 2. How many drinks containing alcohol do you have on a typical day when you are drinking?: 1 or 2 Total Score: 3 Score Reviewed/Action Taken: Yes JOEY-7 AMB Questionnaire JOEY-7 Date JOEY - 7 assessed: 01/22/23 Source: Developed by Drs. Paul Morgan, Eulalia Greco, Sincere Newell and colleagues, with an educational gentry from [employer]. Review of Systems Const Denies chills, Denies fatigue, Denies headache(s) and Denies weight loss Eyes Denies change in vision, Denies diplopia and Denies eye pain ENT Denies vertigo, Denies dizziness, Denies headache(s) and Denies nasal discharge Card Denies chest pain, Denies rapid heart rate and Denies dyspnea on exertion Resp Denies chest congestion, Denies cough, Denies pain with cough and Denies dyspnea on exertion GI Denies abdominal pain, Denies hematochezia and Denies change in bowel habits Musc Denies myalgias, Denies arthralgias and Denies joint swelling Skin/Breast Denies lesions and Denies unusual bruising Neuro Denies vertigo, Denies dizziness, Denies headache(s) and Denies focal weakness Endo Denies fatigue Physical exam (Primary Care) Vital Signs: Last Vital Signs Pulse 95 04/12/23 12:48 BP 110/60 04/12/23 12:48 Pulse Ox 99 04/12/23 12:48 Oxygen Delivery Method Room Air 04/12/23 12:48 BMI result Body Mass Index 27.4 Tobacco/Smoking Status: Tobacco use Status Tobacco use date assessed 01/22/23 04/12/23 12:52 Patient Tobacco Use Status Current everyday Tobacco 04/12/23 12:52 Tobacco use type Smokeless Tobacco 04/12/23 12:52 e-Cigarette/Vaping Use Currently Using 04/12/23 12:52 PHQ-9: PHQ-9 Score PHQ-9: Total score 11 04/12/23 12:52 Depression Screening Interpretation: Positive Depression Screening Follow-up: Existing condition Thrive Assessment: Date of Thrive Assessment Date Thrive assessed 01/22/23 04/12/23 12:52 Const General: cooperative, healthy appearing and no acute distress Orientation/consciousness: oriented to person, oriented to place and oriented to time HENMT Head: Yes normal to inspection, Yes normocephalic and Yes atraumatic Mouth: Normal oral and palatal mucosa present and tongue normal Throat: Yes posterior oropharynx normal and Yes uvula midline Eyes General: appearance normal, both eyes and all related structures Neck Neck: Yes normal visual inspection, Yes full ROM and Yes no lymphadenopathy Thyroid: Thyroid normal Carotids: normal carotid upstroke Chest Chest palpation & inspection: normal inspection of the chest Resp Effort & Inspection: normal respiratory effort and able to speak in complete sentences Auscultation: clear to auscultation bilaterally Cardio Jugular venous distension: no JVD Palpation: normal PMI Rate: regular rate Rhythm: regular rhythm Heart sounds: S1 normal heart sound present and S2 normal heart sound present GI Inspection: Yes normal to inspection Palpation (GI): Soft to palpation and No hepatosplenomegaly present Auscultation: normal bowel sounds General: Yes no CVA tenderness Back/Spine/Pelvis Back: no CVA tenderness Skin General skin exam: no rashes or lesions noted Neuro General: oriented to person, oriented to place and oriented to time Extrem General: Yes normal to inspection and Yes full ROM Assessment and Plan Assessment & Plan (1) Preop exam for internal medicine: Code(s): Z01.818 - Encounter for other preprocedural examination Plan: low risk for cardiovascular complications; cleared for surgery (2) Depression: Code(s): F32.A - Depression, unspecified Plan: stable; same rx (3) Hyperlipidemia: Code(s): E78.5 - Hyperlipidemia, unspecified Plan: stable; same rx (4) Hypothyroidism: Code(s): E03.9 - Hypothyroidism, unspecified Plan: stable; same rx Coding Level of Care Code Est Pt Level 4 (43358) Diagnoses Preop exam for internal medicine Z01.818 Depression F32.A Hyperlipidemia E78.5 Hypothyroidism E03.9
== END 2023-04-12 13:04 | disposition home or self-care (01) ==
PROVIDERS: PCP Internal Medicine; Visit Provider Internal Medicine
DX: E78.5 Hyperlipidemia, unspecified (principal); Z01.818 Encounter for other preprocedural examination; F32.A Depression, unspecified; E03.9 Hypothyroidism, unspecified
CPT/HCPCS: 99214

== ENCOUNTER 2023-08-14 12:07 | Outpatient (REF) | payer OTHER, SELFPAY ==
[2023-08-14 13:07] LABS: MANUAL DIFF FLAG NO
--- NOTE | 2023-08-14 13:08 | ECG_ITS ---
Test Reason : preproc exam Blood Pressure : / mmHG Vent. Rate : 071 BPM Atrial Rate : 071 BPM P-R Int : 170 ms QRS Dur : 140 ms QT Int : 438 ms P-R-T Axes : 043 -69 016 degrees QTc Int : 475 ms Normal sinus rhythm Right bundle branch block Left anterior fascicular block Bifascicular block Minimal voltage criteria for LVH, may be normal variant ( R in aVL ) Abnormal ECG When compared with ECG of 28-JAN-2023 13:02, Nonspecific T wave abnormality now evident in Inferior leads Referred By: Anderson Zhou Electronically Signed By:Bashir Teran
[2023-08-14 13:47] LABS: Basophils Percent Auto 0.2 % (0-2); Eosinophils Absolute Auto 0.2 X10*3/uL (0.0-0.4); Hematocrit 47.1 % (37.0-47.0); Hemoglobin 15.6 g/dl (12.0-16.0); Imm Gran Abs Auto 0.03 X10*3/uL (0.00-0.03); Imm Gran Pct Auto 0.4 % (0.0-0.4); Lymphocytes Absolute Auto 1.6 X10*3/uL (1.2-4.9); Lymphocytes Percent Auto 19.6 % (20-40); Mean Corpuscular HGB Conc 33.1 g/dl (31.0-35.0); Mean Corpuscular Hemoglobin 32.7 pg (27.0-33.0); Mean Corpuscular Volume 98.7 fL (80.0-98.0); Mean Platelet Volume 9.8 fL (9.4-12.3); Monocytes Absolute Auto 0.6 X10*3/uL (0.1-1.2); Monocytes Percent Auto 7.4 % (2-11); Neutrophils Absolute Auto 5.7 x10*3/uL (2.0-8.3); Neutrophils Percent Auto 70.4 % (45-73); Platelet Count 356 X10*3/uL (160-400); Red Blood Count 4.77 X10*6/uL (4.20-5.50); Red Cell Distribution Width 13.9 % (11.0-16.0)
[2023-08-14 15:10] LABS: Alanine Aminotransferase 44 U/L (0-31); Alkaline Phosphatase 53 U/L (39-117); Anion Gap 13 (12-20); Aspartate Amino Transferase 27 U/L (5-31); Bilirubin Total 1.1 mg/dL (0.0-1.0); Blood Urea Nitrogen 12 mg/dL (9-16); Calcium 8.7 mg/dL (8.4-10.2); Carbon Dioxide 29 mmol/L (22-29); Chloride 105 mmol/L (96-108); Estimated Glomerular Filt Rate 58; Glucose Random 122 mg/dL (60-115); Potassium 4.6 mmol/L (3.3-5.1); Sodium 142 mmol/L (135-145); Total Protein 6.2 g/dL (6.5-8.0)
[2023-08-14 15:13] LABS: TSH reflex Free T4 18.99 uIU/mL (0.32-4.0)
[2023-08-14 15:15] LABS: Folate 9.7 ng/mL (> or = 4.0); Vitamin B12 298 pg/mL (200-900)
== END 2023-08-14 12:08 | disposition home or self-care (01) ==
LOC: HO.LAB 12:07
PROVIDERS: PCP Internal Medicine; Visit Provider Psychiatry & Neurology Psychiatry
DX: Z01.818 Encounter for other preprocedural examination (principal); F33.2 Major depressive disorder, recurrent severe without psychotic features
CPT/HCPCS: 36415; 80053; 82607; 82746; 84439; 84443; 85025; 93005; 99212

== ENCOUNTER 2023-08-14 12:07 | Outpatient (AMB) | payer OTHER, SELFPAY ==
--- NOTE | 2023-08-14 12:53 | A.OFFPSYCH_ITS ---
Intake Intake Visit Reasons: ECT Consult Allergies No Known Allergies Allergy (Verified 08/22/23 12:50) HPI- Psychiatric Chief Complaint: ECT Consult HPI Narrative: [id number] [place] [address] TMS Consult Note Signed The patient is a 63-year-old female referred by nurse practitioner Amita Candelaria on 07/25/2023 the patient reports feeling chronically depressed having had multiple medical trials and no improvement even with a full course of TMS. Patient most recently has been on clomipramine 50 mg at bedtime Lexapro 20 mg at bedtime no benefit fluoxetine with no response quetiapine augmentation from Dr. Green and there was no significant benefit. There are no medical contraindications to ECT including cardiac respiratory she is on also atorvast atin 80 mg daily levothyroxine 125 mcg daily in his debate 10 mg daily. Patient complains of insomnia chronic dysphoria a motivation elevated PHQ-9 no psychotic symptoms no active suicidal thoughts . The patient has been in regular counseling over the past year with Audrey her therapist at [facility]. The patient's current episode has been for couple of years. Patient has chronic stress with 1 daughter who has autism lives with the patient her history of seizures. Patient is consistently down difficulty leaving the house can not enjoy anything has significant anxiety. Past trials of duloxetine 60 mg daily clonazepam 0.5 mg twice a day Seroquel for augmentation with had a thick tongue duloxetine has had increased anxiety. The patient's PHQ-9 is 19 of with significant adverse effect on her life consistent poor energy little interest in doing things poor concentration thoughts that she might be better off . Patient often has a difficult time getting out of bed. Past Psychiatric History/Medication Trials: The patient was 1st treated for depression post she was 1st treated with medication 1980s initially Prozac which helped for number of years. She did have a suicide attempt as a teenager Past Psychiatric History: see above TMS completed no significant improvement Mental Status Exam Mental Status Exam Patient Appearance: Well Grooomed Patient Orientation: Person, Place, Time and Situation Level of Consciousness: Awake and Appropriate Patient Behavior: Passive and Fatigued Mood Description: Depressed and Blunted Affect Description: Appropriate and Constricted Patient Cognition Impaired: No Ability to Follow Directions: Good Speech Pattern: Clear Memory Description: Intact Hallucinations: None Delusions: Not Present Thought Process: Intact and Goal Oriented Thought Content: positive for Goal Oriented, positive for Preoccupation, negative for Suicidal Ideation or negative for Homicidal Ideation Depressive Symptoms: Increased Anxiety, Increased Irritability, Loss of Int. in Activity, Feelings of Worthlessness, Hopelessness, Increased Fatigue, Loss of Energy and Difficulty Concentrating Judgement: Good Judgement and Insight: Patient is asking for help Assessment and Plan Assessment & Plan (1) Major depressive disorder, recurrent severe without psychotic features: Status: Acute Code(s): F33.2 - Major depressive disorder, recurrent severe without psychotic features Plan Patient is apathetic a motivational chronically dysphoric elevated PHQ-9 although not actively suicidal minimal quality of life. No contraindications to ECT risks benefits alternatives reviewed medical history reviewed history of hypothyroidism history of elevated cholesterol. Check CBC Chem profile TSH EKG prior to ECT. Patient has elevated TSH would correct this 1st and if symptoms do not remit would proceed if the patient is still symptomatic and wishes to continue to pursue ECT would follow-through that time Orders: Orders Comprehensive Met. Panel 08/14/23 Z01.818 - Encounter for other preprocedural examination, F33.2 - Major depressive disorder, recurrent severe without psychotic features Complete Blood Count Auto Diff 08/14/23 Z01.818 - Encounter for other preprocedural examination, F33.2 - Major depressive disorder, recurrent severe without psychotic features TSH reflex Free T4 08/14/23 Z01.818 - Encounter for other preprocedural examination, F33.2 - Major depressive disorder, recurrent severe without psychotic features Vitamin B12 and Folate 08/14/23 Z01.818 - Encounter for other preprocedural examination, F33.2 - Major depressive disorder, recurrent severe without psychotic features ECG 12 lead EKG 08/14/23 Z01.818 - Encounter for other preprocedural examination, F33.2 - Major depressive disorder, recurrent severe without psychotic features Counseling and coordination of Care Pt. Self Management counseling: Behavior activation Medication management counseling: Effectiveness, Side effects and Dosing range Diagnosis and Prognosis Counseling: Accuracy of diagnosis, Prognosis over time, Impact of diagnosis on life functions, Problematic behaviors secondary to diagnosis and Adequacy of current interventions Details-Diagnosis/Prognosis counseling: Risks benefits alternatives to ECT discussed patient has elevated TSH discussed 1st getting her thyroid into normal range hoping for also behavioral activation and if no benefit would proceed if patient wishes with ECT no contraindications noted risks benefits alternatives reviewed Details: I spent [60] minutes reviewing the record, seeing the patient and documenting in the medical record. Counseling provided to the patient/caregiver as outlined below. Addressed patient/caregiver concerns regarding current medication regime including effective adherence. Addressed patient/caregiver concerns regarding diagnosis and prognosis including accuracy of diagnosis, prognosis over time, impact of diagnosis. Addressed patient/caregiver concerns regarding impact of recent stressors. PFSH Medical History Hypothyroidism Hyperlipidemia Surgical History History of eye surgery History of thyroidectomy Family History Father No problems noted. Mother No problems noted. Family/Other Mental health disorder Social History Housing: House Alcohol intake: current Alcohol intake frequency: a few times a week Patient Tobacco Use Status: Current everyday Tobacco user Tobacco use type: Smokeless Tobacco e-Cigarette/Vaping Use: Currently Using Second Hand Smoke Exposure: No service: No Current occupational status: unemployed Cognitive needs: No Hearing needs: No Vision needs: Yes Social History: THE PATIENT IS NOT WORKING SHE IS HAS 2 DAUGHTERS 1 WITH AUTISM WHO LIVES WITH HER HER PARENTS ARE SHE IS A SMOKER PATIENT HAD A DIFFICULT RELATIONSHIP WITH HER PARENTS SHE FELT UNLOVED AND CARED FOR Substance History: NA Trauma History: Some exposure to uncomfortable situations Coding Level of Care Code Est Pt Level 5 (32609) Diagnoses Major depressive disorder, recurrent severe without psychotic features F33.2
== END 2023-08-14 13:23 | disposition home or self-care (01) ==
LOC: HO.HOP 12:07
PROVIDERS: PCP Internal Medicine; Visit Provider Psychiatry & Neurology Psychiatry
DX: F33.2 Major depressive disorder, recurrent severe without psychotic features (principal)
CPT/HCPCS: 99215

== ENCOUNTER → 2023-08-14 13:08 | Outpatient (BNV) | payer OTHER, SELFPAY | PROVIDERS: PCP Internal Medicine; Visit Provider Internal Medicine Cardiovascular Disease | DX: R94.31 Abnormal electrocardiogram [ECG] [EKG] (principal) | CPT/HCPCS: 93010 ==

== ENCOUNTER 2023-08-22 12:48 | Outpatient (AMB) | payer OTHER, SELFPAY ==
[2023-08-22 12:50] VITALS: BP 100/64; PULSE 80; O2SAT 98; BMI 28.4
--- NOTE | 2023-08-22 12:50 | MHC.PC.OV ---
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 Supervisor: Not Required per policy Accompanied by: Self / Same As Patient Allergies No Known Allergies Allergy (Verified 08/22/23 12:50) Medication List - Last Reconciled 08/23/23 by Jesus Vega MD atorvastatin 80 mg PO DAILY clomipramine 25 mg PO BEDTIME escitalopram oxalate 20 mg PO DAILY ezetimibe 10 mg PO DAILY levothyroxine 150 mcg PO DAILY levothyroxine 175 mcg PO DAILY naproxen (Naprosyn) 500 mg PO BID PRN Tobacco use date assessed: 08/22/23 Dental Screening Dental Screen Date: 08/22/23 Did you have a dental visit in the last 12 months?: Yes Did you have a dental problem in the last 6 months where you did not have access to dental care?: No Was dental information given to patient?: Patient has dentist HPI ECT HPI Details scheduled for ECT; has hyperlipidemia and hypothyroidism; her TSH washigh and her meds were adjusted; her EKG showed no significant changes from a previous EKG except for non-specific changes; no contraindication for her procedure PFSH Medical History Hypothyroidism Hyperlipidemia Surgical History History of eye surgery History of thyroidectomy Family History Father No problems noted. Mother No problems noted. Family/Other Mental health disorder Social History Housing: House Alcohol intake: current Alcohol intake frequency: a few times a week Patient Tobacco Use Status: Current everyday Tobacco user Tobacco use type: Smokeless Tobacco e-Cigarette/Vaping Use: Currently Using Second Hand Smoke Exposure: No service: No Current occupational status: unemployed Cognitive needs: No Hearing needs: No Vision needs: Yes Questionnaire PHQ-9 Over the last 2 weeks, how often have you been bothered by any of the following problems? 1. Little interest or pleasure in doing things: nearly every day 2. Feeling down, depressed, or hopeless: several days 3. Trouble falling or staying asleep, or sleeping too much: nearly every day 4. Feeling tired or having little energy: nearly every day 5. Poor appetite or overeating: several days 6. Feeling bad about yourself - or that you are a failure or have let yourself or your family down: not at all 7. Trouble concentrating on things, such as reading the newspaper or watching television: not at all 8. Moving or speaking so slowly that other people could have noticed. Or the opposite - being so fidgety or restless that you have been moving around a lot more than usual: not at all 9. Thoughts that you would be better off or of hurting yourself in some way: not at all Total score: 11 Depression Screening Interpretation: Positive Depression Screening Follow-up: Existing condition Depression Screening Done: Yes 59697 - PHQ-9 Billing: Yes Source: Developed by Drs. Paul Morgan, Eulalia Greco, Sincere Newell and colleagues, with an educational gentry from [employer]. Thrive Questionnaire Date Thrive assessed: 08/22/23 I am a: Patient What is your living situation today?: I have a steady place to live Within the past 12 months, did the food you bought not last and you didn't have the money to get more?: Never true Within the past 12 months, did you worry whether your food would run out before you got money to buy more?: Never true Do you have trouble paying for medicines?: No Do you have trouble getting transportation to medical appointments?: No Do you have trouble paying your heating and electricity bill?: No Do you have trouble taking care of your child, family member or friend?: No Do you have trouble with day-to-day activities such as bathing, preparing meals, shopping, managing finances, etc.?: No Are you currently unemployed and looking for a job?: No Are you interested in more education?: No Please select the resources that you would like help with: None THRIVE Score: 0 AUDIT C Alcohol Use Questionnaire (AUDIT-C) 1. How often do you have a drink containing alcohol?: 2-3 times a week 2. How many drinks containing alcohol do you have on a typical day when you are drinking?: 1 or 2 Total Score: 3 Score Reviewed/Action Taken: Yes JOEY-7 AMB Questionnaire JOEY-7 Date JOEY - 7 assessed: 08/22/23 Feeling nervous, anxious, or on edge: 0 = Not at all Not being able to stop or control worryin = Not at all Worrying too much about different things: 0 = Not at all Trouble relaxin = Not at all Being so restless that it is hard to sit still: 0 = Not at all Becoming easily annoyed or irritable: 0 = Not at all Feeling afraid as if something awful might happen: 0 = Not at all Total JOEY-7 score (0-4 normal; 5-9 mild; 10-14 moderate; 15-21 severe): 0 Source: Developed by Drs. Paul Morgan, Eulalia Greco, Sincere Newell and colleagues, with an educational gentry from [employer]. Review of Systems Const Denies chills, Denies fatigue, Denies headache(s) and Denies weight loss Eyes Denies change in vision, Denies diplopia and Denies eye pain ENT Denies vertigo, Denies dizziness, Denies headache(s) and Denies nasal discharge Card Denies chest pain, Denies rapid heart rate and Denies dyspnea on exertion Resp Denies chest congestion, Denies cough, Denies pain with cough and Denies dyspnea on exertion GI Denies abdominal pain, Denies hematochezia and Denies change in bowel habits Musc Denies myalgias, Denies arthralgias and Denies joint swelling Skin/Breast Denies lesions and Denies unusual bruising Neuro Denies vertigo, Denies dizziness, Denies headache(s) and Denies focal weakness Endo Denies fatigue Physical exam (Primary Care) Vital Signs: Last Vital Signs Pulse 80 08/22/23 12:50 BP 100/64 08/22/23 12:50 Pulse Ox 98 08/22/23 12:50 Oxygen Delivery Method Room Air 08/22/23 12:50 BMI result Body Mass Index 28.4 Tobacco/Smoking Status: Tobacco use Status Tobacco use date assessed 08/22/23 08/22/23 12:52 Patient Tobacco Use Status Current everyday Tobacco 08/22/23 12:52 Tobacco use type Smokeless Tobacco 08/22/23 12:52 e-Cigarette/Vaping Use Currently Using 08/22/23 12:52 PHQ-9: PHQ-9 Score PHQ-9: Total score 11 08/22/23 12:52 Depression Screening Interpretation: Positive Depression Screening Follow-up: Existing condition Thrive Assessment: Date of Thrive Assessment Date Thrive assessed 08/22/23 08/22/23 12:52 Const General: cooperative, healthy appearing and no acute distress Orientation/consciousness: oriented to person, oriented to place and oriented to time HENMT Head: Yes normal to inspection, Yes normocephalic and Yes atraumatic Mouth: Normal oral and palatal mucosa present and tongue normal Throat: Yes posterior oropharynx normal and Yes uvula midline Eyes General: appearance normal, both eyes and all related structures Neck Neck: Yes normal visual inspection, Yes full ROM and Yes no lymphadenopathy Thyroid: Thyroid normal Carotids: normal carotid upstroke Chest Chest palpation & inspection: normal inspection of the chest Resp Effort & Inspection: normal respiratory effort and able to speak in complete sentences Auscultation: clear to auscultation bilaterally Cardio Jugular venous distension: no JVD Palpation: normal PMI Rate: regular rate Rhythm: regular rhythm Heart sounds: S1 normal heart sound present and S2 normal heart sound present GI Inspection: Yes normal to inspection Palpation (GI): Soft to palpation and No hepatosplenomegaly present Auscultation: normal bowel sounds General: Yes no CVA tenderness Back/Spine/Pelvis Back: no CVA tenderness Skin General skin exam: no rashes or lesions noted Neuro General: oriented to person, oriented to place and oriented to time Extrem General: Yes normal to inspection and Yes full ROM Assessment and Plan Assessment & Plan (1) Preop exam for internal medicine: Code(s): Z01.818 - Encounter for other preprocedural examination Plan: stable; low risk for cardiovascular complications; cleared for procedure (2) Hyperlipidemia: Code(s): E78.5 - Hyperlipidemia, unspecified Plan: stable; same rx (3) Hypothyroidism: Code(s): E03.9 - Hypothyroidism, unspecified Plan: new dose begun Medications: New levothyroxine 175 mcg PO DAILY 90 tabs 3RF Coding Level of Care Code Est Pt Level 4 (80571) Diagnoses Preop exam for internal medicine Z01.81 Hyperlipidemia E78.5 Hypothyroidism E03.9
== END 2023-08-22 13:21 | disposition home or self-care (01) ==
PROVIDERS: PCP Internal Medicine; Visit Provider Internal Medicine
DX: E78.5 Hyperlipidemia, unspecified (principal); E03.9 Hypothyroidism, unspecified; Z01.818 Encounter for other preprocedural examination
CPT/HCPCS: 99214

== ENCOUNTER 2023-10-01 11:53 | Outpatient (REF) | payer OTHER, SELFPAY ==
[2023-10-01 13:34] LABS: TSH reflex Free T4 0.09 uIU/mL (0.32-4.0)
== END 2023-10-01 11:54 | disposition home or self-care (01) ==
LOC: HO.LAB 11:53
PROVIDERS: PCP Internal Medicine; Visit Provider Psychiatry & Neurology Psychiatry
DX: E03.9 Hypothyroidism, unspecified (principal)
CPT/HCPCS: 36415; 84439; 84443

== ENCOUNTER 2023-10-16 14:04 | Outpatient (AMB) | payer OTHER, SELFPAY ==
--- NOTE | 2023-10-16 14:19 | A.OFFPSYCH_ITS ---
Intake Intake Visit Reasons: ect follow up consult Allergies No Known Allergies Allergy (Verified 08/22/23 12:50) Medication List - Last Reconciled 12/15/23 by Anderson Zhou MD atorvastatin 80 mg PO DAILY clomipramine 25 mg PO BEDTIME escitalopram oxalate 20 mg PO DAILY ezetimibe 10 mg PO DAILY levothyroxine 150 mcg PO DAILY levothyroxine 175 mcg PO DAILY naproxen (Naprosyn) 500 mg PO BID PRN triamcinolone acetonide 0.5% 1 appl topical TID HPI- Psychiatric Chief Complaint: ect follow up consult HPI Narrative: See below for recent ECT consult. Patient was noted to have Pt seen in f/u has hx ocd depression recurrent anxiety . She has low no motivation elevated PHQ-9 her life is constricted by having to take care of her special needs daughter who does go to a program couple of days week. She is retired. She initially had a course of TMS which was not helpful. Patient did have ECT consult in August she was noted to have elevated TSH of 18.9 her TSH has been adjusted and there has been no significant improvement. The patient remains with depressed mood lack of motivation lack of energy anhedonia sense of helplessness and hopelessness that is interfering with her life. She also always has recurrent catastrophic thinking most recently the patient has been on escitalopram and Anafranil 25 mg higher doses she stated were not helpful Past Psychiatric History: [facility] [address] [place] [address] Office Visit Report-Psychiatry Signed Patient: Hanane Ramirez MR#: [id number] : 1960 Acct:[id number] Age/Sex: 63 / F ADM/SER Date: 08/14/23 Loc: [facility] ADM/SER Time:1207 Attending Provider: Anderson Zhou MD cc: ~ Intake Intake Visit Reasons: ECT Consult Allergies No Known Allergies Allergy (Verified 08/22/23 12:50) HPI- Psychiatric Chief Complaint: ECT Consult HPI Narrative: [facility] [address] [place] [id number] TMS Consult Note Signed The patient is a 63-year-old female referred by nurse practitioner Amita Candelaria on 07/25/2023 the patient reports feeling chronically depressed having had multiple medical trials and no improvement even with a full course of TMS. Patient most recently has been on clomipramine 50 mg at bedtime Lexapro 20 mg at bedtime no benefit fluoxetine with no response quetiapine augmentation from Dr. Green and there was no significant benefit. There are no medical contraindications to ECT including cardiac respiratory she is on also atorvastatin 80 mg daily levothyroxine 125 mcg daily in his debate 10 mg daily. Patient complains of insomnia chronic dysphoria a motivation elevated PHQ-9 no psychotic symptoms no active suicidal thoughts . The patient has been in regular counseling over the past year with Audrey her therapist at [facility]. The patient's current episode has been for couple of years. Patient has chronic stress with 1 daughter who has autism lives with the patient her history of seizures. Patient is consistently down difficulty leaving the house can not enjoy anything has significant anxiety. Past trials of duloxetine 60 mg daily clonazepam 0.5 mg twice a day Seroquel for augmentation with had a thick tongue duloxetine has had increased anxiety. The patient's PHQ-9 is 19 of with significant adverse effect on her life consistent poor energy little interest in doing things poor concentration thoughts that she might be better off . Patient often has a difficult time getting out of bed. see above TMS completed no significant improvement Subjective Subjective Subjective Medication Compliance: Yes Review of Systems Medical Review of Systems: unchanged Mental Status Exam Mental Status Exam Patient Appearance: Well Grooomed Patient Orientation: Person, Place, Time and Situation Level of Consciousness: Awake and Appropriate Patient Behavior: Passive and Fatigued Mood Description: Depressed and Blunted Affect Description: Appropriate, Constricted and Depressed Patient Cognition Impaired: No Ability to Follow Directions: Good Speech Pattern: Clear Memory Description: Intact Hallucinations: None Delusions: Not Present Thought Process: Intact and Goal Oriented Thought Content: positive for Goal Oriented, positive for Preoccupation, negative for Suicidal Ideation or negative for Homicidal Ideation Depressive Symptoms: Increased Anxiety, Increased Irritability, Loss of Int. 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 Patient's thyroid medication has been adjusted remains a motivational depressed has failed multiple modalities of medication. Would benefit from partial hospital take a good look at medication options and see if the patient could be encouraged to make adjustments regarding current caretaking which seems to have her feeling trapped despite feeling motivated responsible options could include modafinil arm modafinil or other stimulants to see if that would help with functioning and motivation however might tend to increase the patient's anxiety symptoms. Patient would also be a candidate for spravato EKG shows right bundle left anterior fascicular block nonspecific T changes would want some cardiology input before consideration of ECT labs and EKG reviewed Might benefit from being seen with her Counseling and coordination of Care Pt. Self Management counseling: Maintenance-social rhythm and Behavior activation Diagnosis and Prognosis Counseling: Adequacy of current interventions Details: I spent [40] minutes reviewing the record, seeing the patient and documenting in the medical record. Counseling provided to the patient/caregiver as outlined below. Addressed matthew ent/caregiver concerns regarding current medication regime including effective adherence. Addressed patient/caregiver concerns regarding diagnosis and prognosis including accuracy of diagnosis, prognosis over time, impact of diagnosis. Addressed patient/caregiver concerns regarding impact of recent stressors. PFSH Medical History Hypothyroidism Hyperlipidemia Surgical History History of eye surgery History of thyroidectomy Family History Father No problems noted. Mother No problems noted. Family/Other Mental health disorder Social History Housing: House Alcohol intake: current Alcohol intake frequency: a few times a week Patient Tobacco Use Status: Current everyday Tobacco user Tobacco use type: Smokeless Tobacco e-Cigarette/Vaping Use: Currently Using Second Hand Smoke Exposure: No service: No Current occupational status: unemployed Cognitive needs: No Hearing needs: No Vision needs: Yes Social History: THE PATIENT IS NOT WORKING SHE IS HAS 2 DAUGHTERS 1 WITH AUTISM WHO LIVES WITH HER HER PARENTS ARE SHE IS A SMOKER PATIENT HAD A DIFFICULT RELATIONSHIP WITH HER PARENTS SHE FELT UNLOVED AND CARED FOR Substance History: NA Trauma History: Some exposure to uncomfortable situations Coding Level of Care Code Est Pt Level 4 (41528) Diagnoses Major depressive disorder, recurrent severe without psychotic features F33.2 Generalized anxiety disorder F41.1
== END 2023-10-16 14:57 | disposition home or self-care (01) ==
PROVIDERS: PCP Internal Medicine; Visit Provider Psychiatry & Neurology Psychiatry
DX: F33.2 Major depressive disorder, recurrent severe without psychotic features (principal); F41.1 Generalized anxiety disorder
CPT/HCPCS: 99214

== ENCOUNTER → 2023-10-16 14:04 | Outpatient (BNVA) | payer OTHER, SELFPAY | PROVIDERS: PCP Internal Medicine; Visit Provider Psychiatry & Neurology Psychiatry | DX: F33.2 Major depressive disorder, recurrent severe without psychotic features (principal); F41.1 Generalized anxiety disorder | CPT/HCPCS: 99212 ==

== ENCOUNTER 2024-01-27 12:59 | Outpatient (AMB) | payer OTHER, SELFPAY ==
[2024-01-27 13:00] VITALS: BP 112/68; PULSE 81; O2SAT 96; BMI 26.8
--- NOTE | 2024-01-27 13:00 | MHC.PC.OV ---
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 Accompanied by: Self / Same As Patient Allergies No Known Allergies Allergy (Verified 01/27/24 13:01) Medication List - Last Reconciled 01/27/24 by Jesus Vega MD aripiprazole 2 mg PO DAILY atorvastatin 80 mg PO DAILY ezetimibe 10 mg PO DAILY levothyroxine 175 mcg PO DAILY lorazepam 0.5 mg PO DAILY PRN naproxen (Naprosyn) 500 mg PO BID PRN triamcinolone acetonide 0.5% 1 appl topical TID Tobacco use date assessed: 08/22/23 Dental Screening Dental Screen Date: 08/22/23 Did you have a dental visit in the last 12 months?: Yes Did you have a dental problem in the last 6 months where you did not have access to dental care?: No Was dental information given to patient?: Patient has dentist HPI Annual exam HPI Details hyperlipidemia and hypothyroidism [facility] Medical History Hypothyroidism Hyperlipidemia Surgical History History of eye surgery History of thyroidectomy Family History Father No problems noted. Mother No problems noted. Family/Other Mental health disorder Social History Housing: House Alcohol intake: current Alcohol intake frequency: a few times a week Patient Tobacco Use Status: Current everyday Tobacco user Tobacco use type: Smokeless Tobacco e-Cigarette/Vaping Use: Currently Using Second Hand Smoke Exposure: No service: No Current occupational status: unemployed Cognitive needs: No Hearing needs: No Vision needs: Yes Questionnaire PHQ-9 Over the last 2 weeks, how often have you been bothered by any of the following problems? 1. Little interest or pleasure in doing things: more than half the days 2. Feeling down, depressed, or hopeless: more than half the days 3. Trouble falling or staying asleep, or sleeping too much: several days 4. Feeling tired or having little energy: more than half the days 5. Poor appetite or overeating: more than half the days 6. Feeling bad about yourself - or that you are a failure or have let yourself or your family down: more than half the days 7. Trouble concentrating on things, such as reading the newspaper or watching television: several days 8. Moving or speaking so slowly that other people could have noticed. Or the opposite - being so fidgety or restless that you have been moving around a lot more than usual: several days 9. Thoughts that you would be better off or of hurting yourself in some way: not at all Total score: 13 Depression Screening Interpretation: Positive Depression Screening Follow-up: Existing condition Depression Screening Done: Yes 60297 - PHQ-9 Billing: Yes Source: Developed by Drs. Paul Morgan, Eulalia Greco, Sincere Newell and colleagues, with an educational gentry from [employer] Thrive Questionnaire Date Thrive assessed: 08/22/23 AUDIT C Alcohol Use Questionnaire (AUDIT-C) 1. How often do you have a drink containing alcohol?: 2-3 times a week 2. How many drinks containing alcohol do you have on a typical day when you are drinking?: 1 or 2 Total Score: 3 Score Reviewed/Action Taken: Yes JOEY-7 AMB Questionnaire JOEY-7 Date JOEY - 7 assessed: 01/27/24 Feeling nervous, anxious, or on edge: 3 = Nearly every day Not being able to stop or control worryin = Nearly every day Worrying too much about different things: 3 = Nearly every day Trouble relaxin = More than half the days Being so restless that it is hard to sit still: 2 = More than half the days Becoming easily annoyed or irritable: 1 = Several days Feeling afraid as if something awful might happen: 3 = Nearly every day Total JOEY-7 score (0-4 normal; 5-9 mild; 10-14 moderate; 15-21 severe): 17 Source: Developed by Drs. Paul Morgan, Sincere Patel and colleagues, with an educational gentry from [employer] JOEY-7 Assessment Billing JOEY-7 Assessment Tool: JOEY-7 Assessment 71643 Review of Systems Const Denies chills, Denies fatigue, Denies headache(s) and Denies weight loss Eyes Denies change in vision, Denies diplopia and Denies eye pain ENT Denies vertigo, Denies dizziness, Denies headache(s) and Denies nasal discharge Card Denies chest pain, Denies rapid heart rate and Denies dyspnea on exertion Resp Denies chest congestion, Denies cough, Denies pain with cough and Denies dyspnea on exertion GI Denies abdominal pain, Denies hematochezia and Denies change in bowel habits Musc Denies myalgias, Denies arthralgias and Denies joint swelling Skin/Breast Denies lesions and Denies unusual bruising Neuro Denies vertigo, Denies dizziness, Denies headache(s) and Denies focal weakness Endo Denies fatigue Physical exam (Primary Care) Vital Signs: Last Vital Signs Pulse 81 01/27/24 13:00 BP 112/68 01/27/24 13:00 Pulse Ox 96 01/27/24 13:00 Oxygen Delivery Method Room Air 01/27/24 13:00 BMI result Body Mass Index 26.8 Tobacco/Smoking Status: Tobacco use Status Tobacco use date assessed 08/22/23 01/27/24 13:02 Patient Tobacco Use Status Current everyday Tobacco 01/27/24 13:02 Tobacco use type Smokeless Tobacco 01/27/24 13:02 e-Cigarette/Vaping Use Currently Using 01/27/24 13:02 PHQ-9: PHQ-9 Score PHQ-9: Total score 13 01/27/24 13:25 Depression Screening Interpretation: Positive Depression Screening Follow-up: Existing condition Thrive Assessment: Date of Thrive Assessment Date Thrive assessed 08/22/23 01/27/24 13:02 Const General: cooperative, healthy appearing and no acute distress Orientation/consciousness: oriented to person, oriented to place and oriented to time HENMT Head: Yes normal to inspection, Yes normocephalic and Yes atraumatic Mouth: Normal oral and palatal mucosa present and tongue normal Throat: Yes posterior oropharynx normal and Yes uvula midline Eyes General: appearance normal, both eyes and all related structures Neck Neck: Yes normal visual inspection, Yes full ROM and Yes no lymphadenopathy Thyroid: Thyroid normal Carotids: normal carotid upstroke Chest Chest palpation & inspection: normal inspection of the chest Resp Effort & Inspection: normal respiratory effort and able to speak in complete sentences Auscultation: clear to auscultation bilaterally Cardio Jugular venous distension: no JVD Palpation: normal PMI Rate: regular rate Rhythm: regular rhythm Heart sounds: S1 normal heart sound present and S2 normal heart sound present GI Inspection: Yes normal to inspection Palpation (GI): Soft to palpation and No hepatosplenomegaly present Auscultation: normal bowel sounds General: Yes no CVA tenderness Back/Spine/Pelvis Back: no CVA tenderness Skin General skin exam: no rashes or lesions noted Neuro General: oriented to person, oriented to place and oriented to time Extrem General: Yes normal to inspection and Yes full ROM Assessment and Plan Assessment & Plan (1) Physical exam: Code(s): Z00.00 - Encounter for general adult medical examination without abnormal findings Plan: stable; do labs (2) Hypothyroidism: Code(s): E03.9 - Hypothyroidism, unspecified Plan: stable; same rx (3) Hyperlipidemia: Code(s): E78.5 - Hyperlipidemia, unspecified Plan: stable; same rx (4) Major depressive disorder, recurrent severe without psychotic features: Code(s): F33.2 - Major depressive disorder, recurrent severe without psychotic features Plan: sees psych Orders: Orders Complete Blood Count Auto Diff Today Z13.0 - Encounter for screening for diseases of the blood and blood-forming organs and certain disorders involving the immune mechanism Comprehensive Anchor. Panel Fast Today Z13.9 - Encounter for screening, unspecified Lipid Panel Today Z13.220 - Encounter for screening for lipoid disorders Thyroid Stimulating Hormone Today Z13.29 - Encounter for screening for other suspected endocrine disorder Coding Level of Care Code Est Pt Prev Care 40-64y(28291) Diagnoses Physical exam Z00.00 Hypothyroidism E03.9 Hyperlipidemia E78.5 Major depressive disorder, recurrent severe without psychotic features F33.2 Additional Codes JOEY-7 Assessment Billing - JOEY-7 Assessment Tool: JOEY-7 Assessment 10999 ([id number])
== END 2024-01-27 13:27 | disposition home or self-care (01) ==
PROVIDERS: PCP Internal Medicine; Visit Provider Internal Medicine
DX: Z00.00 Encounter for general adult medical examination without abnormal findings (principal); E03.9 Hypothyroidism, unspecified; E78.5 Hyperlipidemia, unspecified; F33.2 Major depressive disorder, recurrent severe without psychotic features
CPT/HCPCS: 99396

== ENCOUNTER 2024-01-31 11:21 | Day surgery (SDC) | payer OTHER, SELFPAY ==
[2024-01-29 14:39] VITALS: BMI 28.7
[2024-01-31 11:32] VITALS: BMI 27.7
[2024-01-31 11:42] VITALS: BP 114/68; PULSE 67; RESP 16; TEMP 36.3; O2SAT 100
[2024-01-31] MEDS: Lactated Ringers 1,000 ML 100 ML IVCONT (11:53)
--- NOTE | 2024-01-31 13:07 | HO.ANESPROP2 ---
HPI - Anesthesia Eval Consult details Narrative: 63yo female patient for Colonoscopy PMFSH Active Problems Active Problems: All Active Problems (Updated 01/29/24 @ 14:40 by Tamiko Godinez RN) Generalized anxiety disorder (Acute) Preop exam for internal medicine (Acute) Physical exam (Acute) Major depressive disorder, recurrent severe without psychotic features (Acute) Depression (Acute) Insomnia (Acute) Dermatochalasis (Acute) Pre-operative clearance (Acute) COVID-19 (Acute) Hyperlipidemia (Acute) Hypothyroidism (Acute) Past Medical History Medical History OCD (obsessive compulsive disorder) Anxiety Depression Hypothyroidism Hyperlipidemia Family History Family History Father No problems noted. Mother No problems noted. Family/Other Mental health disorder Family history of problems with anesthesia: No Surgical History Surgical History Hx of knee surgery Hx of cataract extraction History of eye surgery History of thyroidectomy History of Problems with Anesthesia: No Social History Social History Household Members: Spouse Housing: House Are you a primary daytime caregiver to a significant other at home: Yes (Disabled Daughter) Do you presently have visiting nurse or other home services: No Alcohol intake: current Alcohol intake frequency: a few times a week Patient Tobacco Use Status: Former Tobacco user Tobacco use type: Cigarette Years Smoked: 10 Smoked in Last 30 Days: No e-Cigarette/Vaping Use: Currently Using Second Hand Smoke Exposure: No Use of substances other than those prescribed or required for medical reasons: No Have you been hit, kicked, punched, or otherwise hurt by someone within the past year? If so, by whom?: No Are you DNR?: No Advance Directives: No Advance Directives Information Provided: Yes Recently lost weight without trying: No How much weight loss: Not applicable Eating poorly because of decreased appetite: No Nutrition screen score: 0 Nutrition Risks: No Nutritional Risk Patient : No service: No Current occupational status: unemployed Cognitive needs: No Hearing needs: No Vision needs: Yes Meds Allergies Allergy/AdvReac Type Severity Reaction Status Date / Time No Known Allergies Allergy Verified 01/31/24 11:30 Active Medications: Current Medications Lactated Ringer's (Lr) 1,000 mls @ 100 mls/hr IVCONT .Q10H IRA Last Admin: 01/31/24 11:53 Dose: 100 mls/hr Sodium Biphosphate/Sodium Phosphate (Sodium Phosphate,[place]-Dibasic 133 Ml Enema) 133 ml AL ONCE PRN PRN Reason: Poor Colonoscopy Prep Results Home Medications ?Medication ?Instructions ?Recorded ?Confirmed ?Last Taken ?Type aripiprazole 2 mg tablet 2 mg PO DAILY 01/27/24 01/31/24 Unknown History lorazepam 0.5 mg tablet 0.5 mg PO DAILY PRN Anxiety 01/27/24 01/31/24 Unknown History escitalopram oxalate 20 mg tablet 20 mg PO QAM 01/29/24 01/31/24 01/31/24 History Exam Height,Weight and Vital Signs: Height 5 ft 2 in Weight 68.765 kg Last Vital Signs Temp 97.3 F 01/31/24 11:42 Pulse 67 01/31/24 11:42 Resp 16 01/31/24 11:42 BP 114/68 01/31/24 11:42 Pulse Ox 100 01/31/24 11:42 O2 Del Method Room Air 01/31/24 11:42 Airway Mallampati Class: III TM Dist: >3cm Neck ROM: Full Loose/Missing/Broken Teeth: Yes (Missing teeth bottom back) Heart: RRR Lungs: CTAB Assessment and Plan Assessment Anesthesia Assessment: Anesthesia Plan Discussed and Chart Reviewed Final Anesthetic Review Family History of Problems with Anesthesia: No History of Problems with Anesthesia: No NPO: Yes ASA Class: III Final Preanesthetic Review: No Changes in Pt Med Stat, Meds/Allgs Chart Reviewed, Consent Obtained/Reviewed and Anes Risks/Benef Reviewed Patient Risk: Intermediate Procedure Risk: Low Assessment/Block/Sedation in SS: Assess/Block/Sedation-SS Anesthetic Plan Anesthetic Plan: TIVA Disposition: Standard PACU
[2024-01-31 15:10] VITALS: BP 92/51; PULSE 57; RESP 16; TEMP 36.1; O2SAT 100
--- NOTE | 2024-01-31 15:13 | PM.OP ---
Brief Operative Note Date of Service: 01/31/24 Pre-op diagnosis: Screening Post-op diagnosis: other (Diverticulosis) Procedure: Colonoscopy to the cecum and TI Surgeon: Paul Sotelo MD Anesthesia: MAC Was an Medical Language Specialist used for this Procedure?: No Estimated blood loss (mL): 0 Pathology: none sent Condition: stable Disposition: PACU
[2024-01-31 15:25] VITALS: BP 102/55; PULSE 59; RESP 16; TEMP 36.1; O2SAT 100
--- NOTE | 2024-01-31 21:26 | OP_ITS ---
DATE OF SERVICE: 01/31/2024 SURGEON: Paul Sotelo MD INDICATIONS: The patient presents for evaluation of colorectal cancer screening. Full consent has been obtained from her for this, including risks of bleeding and perforation. PREOPERATIVE DIAGNOSIS: Colorectal cancer screening. POSTOPERATIVE DIAGNOSIS: PROCEDURE PERFORMED: Colonoscopy to cecum and terminal ileum. ESTIMATED BLOOD LOSS: COMPLICATIONS: ANESTHESIA: Monitored anesthesia care. ASSISTANTS: SPECIMENS: POSTOPERATIVE DIAGNOSES: Colorectal cancer screening, sigmoid diverticulosis, and internal hemorrhoids. DESCRIPTION OF PROCEDURE: The patient was placed in the left lateral decubitus position. The digital rectal exam revealed no abnormalities. The Olympus video pediatric colonoscope was entered into the rectum and advanced to the cecum. Once in the cecum, I did identify normal-appearing cecal pouch with appendiceal orifice and a normal-appearing ileocecal valve. The terminal ileum was cannulated and appeared normal. Scope was withdrawn back in the colon. The entire cecum and ileocecal valve appeared normal. The scope was slowly withdrawn assessing all mucosal surfaces carefully. Preparation was excellent. I did not visualize any sign of polyps, colitis, nor angiodysplasia. There was a mild amount of sigmoid diverticulosis. In the rectum, scope was retroflexed visualizing internal hemorrhoids, but no other pathology. The rectal mucosa appeared normal. Scope was straightened and withdrawn from the patient. She tolerated the procedure well and was returned to the recovery area in stable condition. IMPRESSION: 1. Diverticulosis. 2. Internal hemorrhoids. PLAN: Given today's negative exam and negative family history, I would recommend a followup coloscopy in 10 years for screening. She will otherwise see me on a p.r.n. basis. Paul Sotelo MD RMW/MODL / [id number]
== END 2024-01-31 15:43 | disposition home or self-care (01) ==
PROVIDERS: PCP Internal Medicine; Visit Provider Internal Medicine
PROC: 0DJD8ZZ Inspection of Lower Intestinal Tract, Via Natural or Artificial Opening Endoscopic (ICD-10-PCS; CPT 45378; principal; 2024-01-31 12:30)
DX: Z12.11 Encounter for screening for malignant neoplasm of colon (principal); K57.30 Diverticulosis of large intestine without perforation or abscess without bleeding; K64.8 Other hemorrhoids; F41.8 Other specified anxiety disorders; F42.9 Obsessive-compulsive disorder, unspecified; E78.5 Hyperlipidemia, unspecified; E89.0 Postprocedural hypothyroidism; Z79.899 Other long term (current) drug therapy; Z79.1 Long term (current) use of non-steroidal anti-inflammatories (NSAID); F17.290 Nicotine dependence, other tobacco product, uncomplicated; Z98.890 Other specified postprocedural states
CPT/HCPCS: 45378; J2704

== ENCOUNTER 2024-11-24 12:32 | Outpatient (REF) | payer OTHER, SELFPAY ==
[2024-11-24 12:46] LABS: MANUAL DIFF FLAG NO
[2024-11-24 12:53] LABS: Basophils Percent Auto 0.1 % (0-2); Eosinophils Absolute Auto 0.1 X10*3/uL (0.0-0.4); Eosinophils Percent Auto 0.9 % (0-4); Hematocrit 43.1 % (37.0-47.0); Hemoglobin 14.2 g/dl (12.0-16.0); Imm Gran Abs Auto 0.01 X10*3/uL (0.00-0.03); Imm Gran Pct Auto 0.1 % (0.0-0.4); Lymphocytes Absolute Auto 1.5 X10*3/uL (1.2-4.9); Lymphocytes Percent Auto 21.8 % (20-40); Mean Corpuscular HGB Conc 32.9 g/dl (31.0-35.0); Mean Corpuscular Hemoglobin 30.6 pg (27.0-33.0); Mean Corpuscular Volume 92.9 fL (80.0-98.0); Monocytes Absolute Auto 0.7 X10*3/uL (0.1-1.2); Monocytes Percent Auto 9.7 % (2-11); Neutrophils Absolute Auto 4.7 x10*3/uL (2.0-8.3); Neutrophils Percent Auto 67.4 % (45-73); Platelet Count 282 X10*3/uL (160-400); Red Blood Count 4.64 X10*6/uL (4.20-5.50); Red Cell Distribution Width 13.6 % (11.0-16.0); White Blood Count 6.9 X10*3/uL (4.8-10.8)
[2024-11-24 13:29] LABS: Alanine Aminotransferase 37 U/L (0-31); Albumin Level 4.6 g/dL (3.5-5.0); Alkaline Phosphatase 72 U/L (39-117); Anion Gap 10 (12-20); Aspartate Amino Transferase 29 U/L (5-31); Bilirubin Total 1.3 mg/dL (0.0-1.0); Blood Urea Nitrogen 15 mg/dL (9-16); Calcium 9.8 mg/dL (8.4-10.2); Carbon Dioxide 29 mmol/L (22-29); Chloride 108 mmol/L (96-108); Cholesterol 163 mg/dL (<200); Estimated Glomerular Filt Rate > 60; Glucose Fasting 101 mg/dL (60-99); HDL Cholesterol 56 mg/dL (>40); LDL Cholesterol Calculated 89 mg/dL (<100); Potassium 4.2 mmol/L (3.3-5.1); Sodium 143 mmol/L (135-145); Total Protein 7.3 g/dL (6.5-8.0); Triglycerides 92 mg/dL (<150)
[2024-11-24 13:47] LABS: Thyroid Stimulating Hormone < 0.01 uIU/mL (0.32-4.0)
== END 2024-11-24 12:33 | disposition home or self-care (01) ==
LOC: HO.LAB 12:32
PROVIDERS: PCP Internal Medicine; Visit Provider Internal Medicine
DX: Z13.0 Encounter for screening for diseases of the blood and blood-forming organs and certain disorders involving the immune mechanism (principal); Z13.9 Encounter for screening, unspecified; Z13.220 Encounter for screening for lipoid disorders; Z13.29 Encounter for screening for other suspected endocrine disorder
CPT/HCPCS: 36415; 80053; 80061; 84443; 85025

== ENCOUNTER 2025-01-12 11:41 | Outpatient (REF) | payer OTHER, SELFPAY ==
[2025-01-12 12:59] LABS: Free T4 (Free Thyroxine) 1.58 ng/dL (0.71-1.85)
== END 2025-01-12 11:42 | disposition home or self-care (01) ==
LOC: HO.LAB 11:41
PROVIDERS: PCP Internal Medicine
DX: Z00.00 Encounter for general adult medical examination without abnormal findings (principal); E03.9 Hypothyroidism, unspecified
CPT/HCPCS: 36415; 84439; 84443

== ENCOUNTER 2025-02-01 12:22 | Outpatient (AMB) | payer OTHER, SELFPAY ==
[2025-02-01 12:31] VITALS: BP 110/66; PULSE 81; O2SAT 99; BMI 24.9
--- NOTE | 2025-02-01 12:31 | A.OFFPC_ITS ---
Vital Signs 02/01/25 12:31 Height 5 ft 2 in Weight 136 lb 4 oz BMI 24.9 BP 110/66 Blood Pressure Location Lt brachial Position Sitting Pulse 81 Pulse Source Pulse Oximeter Pulse Oximetry (%) 99 Oxygen Delivery Method Room Air Intake Visit Reasons: Transfer care from Dr. 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: No Accompanied by: Self / Same As Patient Allergies No Known Allergies Allergy (Verified 02/01/25 12:39) Medication List - Last Reconciled 02/01/25 by Duane Murray MD aripiprazole 2 mg PO DAILY atorvastatin 80 mg PO DAILY escitalopram oxalate 20 mg PO QAM ezetimibe 10 mg PO DAILY levothyroxine (Levoxyl) 150 mcg PO DAILY lidocaine 4% (Aspercreme (lidocaine)) 1 patch topical DAILY PRN lidocaine 5% 1 patch topical DAILY lorazepam 0.5 mg PO DAILY PRN naproxen (Naprosyn) 500 mg PO BID PRN triamcinolone acetonide 0.5% 1 appl topical TID Tobacco use date assessed: 02/01/25 Dental Screening Dental Screen Date: 02/01/25 Did you have a dental visit in the last 12 months?: Yes Did you have a dental problem in the last 6 months where you did not have access to dental care?: No Was dental information given to patient?: Patient has dentist HPI Transfer care from Dr. Vega Annual exam HPI Details Patient comes in today for her annual physical examination - she is transferring over from Dr. Vega, who retired from the practice a few months ag o Patient states that she has been experiencing frequent pain behind her left hip for about a year now States that she has not been sleeping well lately as a result, as the pain behind her left hip tends to wake her up often in the middle of the night Notes that the pain does not bother her as much during the day and she reports no increase in her pain with walking and whenshe is moving about - states that she does about [id number] steps a day on average She also denies any recent hip injury or trauma Adds that she has been experiencing recurrent pain and stiffness over her left Achilles tendon - notes that she feels the symptoms early in the morning when she first gets up but they would gradually ease up when she starts walking She denies any headaches or dizziness Denies any chest pains, no SOB No nausea/vomiting, no abdominal pain No change in bowel habits noted Denies any acute urinary symptoms She had her follow up labs done a couple of months ago - to discuss her results She had her screening colonoscopy last done with Dr. Sotelo a year ago on 01/31/2024 - colonoscopy was normal and she was advised to have a repeat colonoscopy done in 10 years (2033) Her annual mammogram was last done on 02/22/2023 (normal) and she supposedly recalls being advised at the time that she can now go for her mammogram every 2 years as she has never had an abnormal mammogram in the past Her BMD was last done in 2009 - normal She has not had her yearly gynecology exam and pap smear done in a few years now [facility] Medical History (Updated 02/01/25 @ 14:23 by Duane Murray MD) Acquired hypothyroidism Mixed hyperlipidemia OCD (obsessive compulsive disorder) Anxiety Depression Hypothyroidism Hyperlipidemia Surgical History Hx of knee surgery Hx of cataract extraction History of eye surgery History of thyroidectomy Family History Father No problems noted. Mother No problems noted. Family/Other Mental health disorder Social History Household Members: Spouse Housing: House Are you a primary child care attendant to a significant other at home: Yes (Disabled Daughter) Do you presently have visiting nurse or other home services: No Alcohol intake: current Alcohol intake frequency: a few times a week Patient Tobacco Use Status: Former Tobacco user Tobacco use type: Cigarette Years Smoked: 10 e-Cigarette/Vaping Use: Currently Using Second Hand Smoke Exposure: No service: No Current occupational status: unemployed Cognitive needs: No Hearing needs: No Vision needs: Yes Questionnaire PHQ-9 Over the last 2 weeks, how often have you been bothered by any of the following problems? 1. Little interest or pleasure in doing things: several days 2. Feeling down, depressed, or hopeless: not at all 3. Trouble falling or staying asleep, or sleeping too much: several days 4. Feeling tired or having little energy: several days 5. Poor appetite or overeating: not at all 6. Feeling bad about yourself - or that you are a failure or have let yourself or your family down: not at all 7. Trouble concentrating on things, such as reading the newspaper or watching television: not at all 8. Moving or speaking so slowly that other people could have noticed. Or the opposite - being so fidgety or restless that you have been moving around a lot more than usual: not at all 9. Thoughts that you would be better off or of hurting yourself in some way: not at all Total score: 3 Depression Screening Interpretation: Positive Depression Screening Follow-up: Existing condition and In treatment Depression Screening Done: Yes 33657 - PHQ-9 Billing: Yes Source: Developed by Drs. Paul Morgan, Eulalia Greco, Sincere Newell and colleagues, with an educational gentry from [employer]. Thrive Questionnaire Date Thrive assessed: 02/01/25 I am a: Patient What is your living situation today?: I have a steady place to live Within the past 12 months, did the food you bought not last and you didn't have the money to get more?: Never true Within the past 12 months, did you worry whether your food would run out before you got money to buy more?: Never true Do you have trouble paying for medicines?: No Do you have trouble getting transportation to medical appointments?: No Do you have trouble paying your heating and electricity bill?: No Do you have trouble taking care of your child, family member or friend?: No Do you have trouble with day-to-day activities such as bathing, preparing meals, shopping, managing finances, etc.?: No Are you currently unemployed and looking for a job?: No Are you interested in more education?: No Please select the resources that you would like help with: None Currently or been in a relationship where the following occur: No concerns reported THRIVE Score: 0 AUDIT C Alcohol Use Questionnaire (AUDIT-C) 1. How often do you have a drink containing alcohol?: 2-3 times a week 2. How many drinks containing alcohol do you have on a typical day when you are drinking?: 3 or 4 3. How often do you have six or more drinks on one occasion?: Less than monthly Total Score: 5 Score Reviewed/Action Taken: Yes JOEY-7 AMB Questionnaire JOEY-7 Date JOEY - 7 assessed: 02/01/25 Feeling nervous, anxious, or on edge: 1 = Several days Not being able to stop or control worryin = Nearly every day Worrying too much about different things: 3 = Nearly every day Trouble relaxin = Several days Being so restless that it is hard to sit still: 3 = Nearly every day Becoming easily annoyed or irritable: 0 = Not at all Feeling afraid as if something awful might happen: 2 = More than half the days Total JOEY-7 score (0-4 normal; 5-9 mild; 10-14 moderate; 15-21 severe): 13 Source: Developed by Drs. Paul Morgan, Eulalia Greco, Sincere Newell and colleagues, with an educational gentry from [employer]. Review of Systems Const Denies chills, Denies fatigue, Denies fever(s), Denies headache(s) and Denies malaise Eyes Denies blurry vision, Denies change in vision, Denies irritation and Denies itchy eyes ENT Denies dysphagia, Denies dizziness, Denies otalgia, Denies headache(s), Denies nasal congestion, Denies neck pain, Denies odynophagia, Denies sinus pain and Denies sore throat Card Denies chest pain, Denies rapid heart rate, Denies irregular heart rhythm, Denies palpitations and Denies dyspnea Resp Denies chest congestion, Denies cough, Denies dyspnea and Denies wheezing GI Denies abdominal pain, Denies bloating, Denies constipation, Denies dysphagia, Denies heartburn, Denies diarrhea, Denies nausea, Denies odynophagia and Denies vomiting Denies hematuria, Denies difficulty voiding, Denies nocturia, Denies dysuria, Denies urinary incontinence and Denies urinary urgency Musc Reports as per HPI, Denies back pain, Reports arthralgias (recurrent pain behind the left hip - most often at night), Denies joint swelling, Denies muscle weakness and Denies neck pain Skin/Breast Denies breast pain, Denies breast mass, Denies change in pigmentation, Denies lesions, Denies rash and Denies unusual bruising Neuro Denies dizziness, Denies headache(s) and Denies paresthesias Psych Denies anxiety and Denies depression Endo Denies fatigue and Denies palpitations Dawson/Lymph Denies easy bruising Aller/Immun Denies itchy eyes and Denies wheezing Physical exam (Primary Care) Vital Signs: Oxygen Delivery Method Room Air 02/01/25 12:31 Tobacco/Smoking Status: Tobacco use Status Tobacco use date assessed 02/01/25 02/01/25 12:35 Patient Tobacco Use Status Former Tobacco user 02/01/25 12:35 Tobacco use type Cigarette 02/01/25 12:35 e-Cigarette/Vaping Use Currently Using 02/01/25 12:35 PHQ-9: PHQ-9 Score PHQ-9: Total score 3 02/01/25 12:35 Depression Screening Interpretation: Positive Depression Screening Follow-up: Existing condition and In treatment Thrive Assessment: Date of Thrive Assessment Date Thrive assessed 02/01/25 02/01/25 12:35 Currently or been in a relationship where the following occur: No concerns reported Const General: no acute distress, alert and awake Orientation/consciousness: patient oriented x3 HENMT Head: Yes normocephalic and Yes atraumatic Ears: external ears normal, TM's normal bilaterally and EAC's normal General nose exam: No nasal discharge present Face and sinus: Yes normal facial exam and Yes sinuses nontender Teeth and gingiva: dentition normal Throat: Yes posterior oropharynx normal and Yes tonsils normal (no TP congestion) Eyes Eyelids: Yes eyelids normal Conjunctivae: conjunctivae normal Pupils: Equal, round and reactive pupils present EOM: EOMs intact bilaterally Neck Neck: Yes no lymphadenopathy and Yes supple Thyroid: Thyroid normal Resp Auscultation: clear to auscultation bilaterally, no rales and no wheezes Cardio Rate: regular rate Rhythm: regular rhythm Heart sounds: no murmurs GI Palpation (GI): Soft to palpation, nontender and No hepatosplenomegaly present Auscultation: normal bowel sounds General: Yes no CVA tenderness Back/Spine/Pelvis Back: no CVA tenderness Thoracic/Lumbar Spine: lumbar spinal tenderness (mild) Skin Lesions: no lesions Rashes: no rashes Neuro General: patient oriented x3, moves all extremities, no focal motor deficits and CN's II-XI intact bilaterally Cranial nerves: Yes Equal, round and reactive pupils present Cognition (Neuro): normal cognition Gait exam (Neuro): Normal gait present Extrem General: Yes no clubbing, cyanosis or edema Left lower extremity: hip/thigh Details: normal ROM; no tenderness and ankle Details: tenderness Location: of the achilles tendon; no swelling Results Reviewed Results Reviewed: Laboratory Tests 11/24/24 01/12/25 12:44 11:56 WBC 6.9 Hgb 14.2 Hct 43.1 Plt Count 282 Sodium 143 Potassium 4.2 Creatinine 0.88 Estimated GFR > 60 Fasting Glucose 101 H Calcium 9.8 D AST 29 ALT 37 H Triglycerides 92 Cholesterol 163 LDL Cholesterol, Calc 89 HDL Cholesterol 56 TSH < 0.01 L Free T4 1.58 Coding Level of Care Code Est Pt Prev Care 40-64y(66284) Diagnoses Annual physical exam Z00.00 Mixed hyperlipidemia E78.2 Acquired hypothyroidism E03.9 Posterior pain of left hip M25.552 Left Achilles tendinitis M76.62 Generalized anxiety disorder F41.1 Major depressive disorder, recurrent severe without psychotic features F33.2 Breast cancer screening by mammogram Z12.31 Cervical cancer screening Z12.4 Osteoporosis screening Z13.820 Additional Codes PHQ-9 - 19163 - PHQ-9 Billing: Yes ([id number]) Assessment & Plan Assessment & Plan (1) Annual physical exam: Code(s): Z00.00 - Encounter for general adult medical examination without abnormal findings Category: Medical Plan: Results of her labs done a couple of months ago reviewed and discussed with patient She had her screening colonoscopy last done with Dr. Sotelo a year ago on 01/31/2024 - colonoscopy was normal and she was advised to have a repeat colonoscopy done in 10 years (2033) Her annual mammogram was last done on 02/22/2023 (normal) and she supposedly recalls being advised at the time that she can now go for her mammogram every 2 years as she has never had an abnormal mammogram in the past Her BMD was last done in 2009 - normal She has not had her yearly gynecology exam and pap smear done in a few years now and she is past due (2) Mixed hyperlipidemia: Code(s): E78.2 - Mixed hyperlipidemia Category: Medical Plan: Patient is advised that her cholesterol levels are at goal Reinforced low cholesterol diet - goal is LDL cholesterol of at least <100 mg/dl but ideally < 70 mg/dl Continue Atorvastatin 80 mg QD and Ezetimibe 10 mg QD Will have patient recheck her labs and fasting lipids in 6 months for follow up (3) Acquired hypothyroidism: Code(s): E03.9 - Hypothyroidism, unspecified Category: Medical Plan: Advised patient that her serum TSH level is suppressed and her free T4 level has increased slightly from previous although it is still in the (high) normal range Will have her continue on Levothyroxine 150 mcg QD for now Will recheck her TFTs in 6 months for follow up Will also check her T3 level as well as thyroglobulin Ab then for further evaluation (4) Posterior pain of left hip: Code(s): M25.552 - Pain in left hip Category: Medical Plan: Discussed with patient that based on the presentation of her symptoms, her pain may not necessarily be from her left hip and may possibly be from her lower back Will send patient for x-rays of the lumbar spine as well as her left hip for further evaluation (5) Left Achilles tendinitis: Code(s): M76.62 - Achilles tendinitis, left leg Category: Medical Plan: Have advised patient that this is likely a result of her increased walking and activity, as she normally walks over 65885 steps a day on average Will also have her get some x-rays done on her left heel/foot further evaluation Continue Naproxen 500 mg BID PRN with food for now (6) Generalized anxiety disorder: Code(s): F41.1 - Generalized anxiety disorder Category: Medical Plan: Continue Lorazepam 0.5 mg QD PRN and Escitalopram 20 mg QD (7) Major depressive disorder, recurrent severe without psychotic features: Code(s): F33.2 - Major depressive disorder, recurrent severe without psychotic features Category: Medical Plan: Continue Escitalopram 20 mg QD and Aripiprazole 2 mg Q HS Follow up with therapist/counselor as scheduled (8) Breast cancer screening by mammogram: Code(s): Z12.31 - Encounter for screening mammogram for malignant neoplasm of breast Category: Medical Plan: Will send patient for her annual mammogram - this was last done a couple of years ago in 2022 (9) Cervical cancer screening: Code(s): Z12.4 - Encounter for screening for malignant neoplasm of cervix Category: Medical Plan: Patient states that she has not had her yearly gynecology exam and pap smear done in a few years now Will refer her to the [facility] to get her gynecology exam and pap smear updated (10) Osteoporosis screening: Code(s): Z13.820 - Encounter for screening for osteoporosis Category: Medical Plan: Will send her for repeat BMD - last BMD was done in 2009, which was normal Plan Follow up in 6 months Orders: Orders Lipid Panel 6 Months E78.00 - Pure hypercholesterolemia, unspecified Thyroid Stimulating Hormone 6 Months E03.9 - Hypothyroidism, unspecified XR hip LT min 2V Today M25.552 - Pain in left hip XR DEXA axial skeleton Today Z78.0 - Asymptomatic menopausal state MM tomosynthesis screening BI Today Z12.31 - Encounter for screening mammogram for malignant neoplasm of breast XR ankle LT min 3V Today M79.672 - Pain in left foot Complete Blood Count Auto Diff 6 Months D64.9 - Anemia, unspecified Comprehensive [place]. 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
== END 2025-02-01 13:17 | disposition home or self-care (01) ==
LOC: HO.HMCH 12:23
PROVIDERS: PCP Internal Medicine; Visit Provider Internal Medicine
DX: Z00.00 Encounter for general adult medical examination without abnormal findings (principal); E78.2 Mixed hyperlipidemia; F33.2 Major depressive disorder, recurrent severe without psychotic features; E03.9 Hypothyroidism, unspecified; M25.552 Pain in left hip; M76.62 Achilles tendinitis, left leg; F41.1 Generalized anxiety disorder; Z12.31 Encounter for screening mammogram for malignant neoplasm of breast; Z13.820 Encounter for screening for osteoporosis

== ENCOUNTER → 2025-02-01 12:22 | Outpatient (BNVA) | payer OTHER, SELFPAY | PROVIDERS: PCP Internal Medicine; Visit Provider Internal Medicine | DX: Z00.00 Encounter for general adult medical examination without abnormal findings (principal); E78.2 Mixed hyperlipidemia; E03.9 Hypothyroidism, unspecified; M25.552 Pain in left hip; M76.62 Achilles tendinitis, left leg; F41.1 Generalized anxiety disorder; F33.2 Major depressive disorder, recurrent severe without psychotic features | CPT/HCPCS: 96127; 99396 ==

== ENCOUNTER 2025-02-15 10:56 | Outpatient (REF) | payer OTHER, SELFPAY ==
--- NOTE | ~2025-02-15 | XR_ITS ---
EXAMINATION: XR ANKLE, left CLINICAL INFORMATION: M79.672 - Pain in left foot COMPARISON: None available. TECHNIQUE: AP, lateral, and mortise views lower extremity joint, ankle. FINDINGS: Ankle mortise is congruent. There is no widening of the syndesmosis. Talar dome is intact. There are small calcaneal enthesophytes at the plantar fascia and Achilles attachments. XR/XR ankle LT min 3V IMPRESSION: Nonspecific small calcaneal enthesophytes. Electronically signed by: Ortega Gutierrez MD 02/15/2025 11:44 AM EDT
--- NOTE | ~2025-02-15 | XR_ITS ---
EXAMINATION: XR HIP, LEFT CLINICAL INFORMATION: M25.552 - Pain in left hip COMPARISON: None available. TECHNIQUE: AP and frog-leg lateral views of the left hip. FINDINGS: Left hip joint is preserved. There are no marginal osteophytes. There is calcific density projecting adjacent to the superior lateral greater trochanter. XR/XR hip LT min 2V IMPRESSION: Calcific density adjacent to the superior lateral margin of the greater trochanter could represent chronic calcific tendinitis versus early enthesophyte formation. Electronically signed by: Ortega Gutierrez MD 02/15/2025 11:42 AM EDT
--- NOTE | ~2025-02-15 | XR_ITS ---
EXAMINATION: XR LUMBOSACRAL SPINE CLINICAL INFORMATION: M54.50 - Low back pain, unspecified COMPARISON: None available. TECHNIQUE: Three views of the lumbosacral spine. FINDINGS: There are 5 nonrib-bearing lumbar segments. SI joints are unremarkable. Mild disc space narrowing and endplate ossified is are noted in the lower thoracic spine. L2-3 demonstrates mild disc space narrowing. L4-5 demonstrates mild disc space narrowing and subtle retrolisthesis. L5-S1 demonstrates mild disc space narrowing with endplate osteophytes. XR/XR lumbar spine 2-3V IMPRESSION: Mild degenerative changes. Electronically signed by: Ortega Gutierrez MD 02/15/2025 11:43 AM EDT
== END 2025-02-15 10:57 | disposition home or self-care (01) ==
LOC: HO.XRAY 10:56
PROVIDERS: PCP Internal Medicine; Visit Provider Internal Medicine
DX: M79.672 Pain in left foot (principal); M25.552 Pain in left hip; M54.50 Low back pain, unspecified
CPT/HCPCS: 72100; 73502; 73610

== ENCOUNTER → 2025-02-15 11:03 | Outpatient (BNV) | payer OTHER, SELFPAY | PROVIDERS: PCP Internal Medicine; Visit Provider Radiology Diagnostic Radiology | DX: M25.522 Pain in left elbow (principal); M54.50 Low back pain, unspecified; M79.672 Pain in left foot | CPT/HCPCS: 72100; 73502; 73610 ==

== ENCOUNTER 2025-04-02 13:38 | Outpatient (REF) | payer OTHER, SELFPAY ==
--- NOTE | ~2025-04-02 | MM_ITS ---
EXAMINATION: DXA BONE DENSITY AXIAL HISTORY: Z78.0 - Asymptomatic menopausal state TECHNIQUE: [place] Dual energy absorptiometry (DEXA) of the lumbar spine, total left hip, and femoral neck was performed. COMPARISON: Comparison is made with the prior examination dated August 2009. FINDINGS: The bone mineral density of the lumbar spine is 0.952 g/cm2, corresponding to a T-score of -1.9, and a Z-score of -0.3. This is indicative of osteopenia. This represents a BMD change of -15.2% compared to the prior exam. The bone mineral density of the left total hip is 0.958 g/cm2, corresponding to a T-score of -0.4, and a Z-score of 0.8. This is indicative of normal bone mineral density. This represents a BMD change of -14.2% compared to the prior exam. The bone mineral density of the left femoral neck is 0.898 g/cm2, corresponding to a T-score of -1.0, and a Z-score of 0.5. This is indicative of normal bone mineral density. This represents a BMD change of -11.4% compared to the prior exam. FRACTURE RISK: The fracture risk is moderate. Bone density is between 10 and 25% below young normal. MM/XR DEXA axial skeleton IMPRESSION: Based on bone mineral density, and according to World Health Organization (WHO) criteria, the diagnosis is consistent with osteopenia based on T score of -1.9 in the lumbar spine. Statistically, 68% of repeat scans fall within 1 SD (+/- 0.010 g/cm2 for AP spine L1-L4) and 1 SD (+/- 0.012 g/cm2 for femur total) FRAX is a trademark of the [employer] [place] [facility] [employer], a World Health Organization (WHO) Collaborating Center. Electronically signed by: Nakia Mora MD 04/06/2025 08:39 AM EDT
--- NOTE | ~2025-04-02 | MM_ITS ---
EXAMINATION: MM SCREENING DIGITAL BREAST TOMOSYNTHESIS, BILATERAL CLINICAL INFORMATION: Screening. Asymptomatic. COMPARISON: Mammography: Comparison is made with available priors TECHNIQUE: Digital breast mammography with tomosynthesis is performed in both the craniocaudal and mediolateral oblique views along with computer-aided detection (CAD). FINDINGS: There are scattered areas of fibroglandular density. There are no significant masses, abnormal calcifications, or other abnormalities. MM/MM tomosynthesis screening BI IMPRESSION: No mammographic evidence of malignancy. ASSESSMENT: BI-RADS Category 1: Negative RECOMMENDATION: Routine annual mammography screening. 1 year F/U This examination should not preclude the clinical evaluation of a suspicious palpable abnormality. This patient's information was entered into a reminder system with a target due date for their next mammogram. Electronically signed by: Pratibha Duncan DO 04/06/2025 09:29 AM [facility]
== END 2025-04-02 13:39 | disposition home or self-care (01) ==
LOC: HO.MAMMO 13:38
PROVIDERS: PCP Internal Medicine; Visit Provider Internal Medicine
DX: Z12.31 Encounter for screening mammogram for malignant neoplasm of breast (principal); Z13.820 Encounter for screening for osteoporosis; Z78.0 Asymptomatic menopausal state
CPT/HCPCS: 77063; 77067; 77080

== ENCOUNTER → 2025-04-02 14:00 | Outpatient (BNV) | payer OTHER, SELFPAY | PROVIDERS: PCP Internal Medicine; Visit Provider Radiology Diagnostic Radiology | DX: E28.39 Other primary ovarian failure (principal); Z12.31 Encounter for screening mammogram for malignant neoplasm of breast | CPT/HCPCS: 77063; 77067; 77080 ==

== ENCOUNTER 2025-05-24 12:27 | Outpatient (REF) | payer OTHER, SELFPAY ==
[2025-05-24 12:42] LABS: MANUAL DIFF FLAG NO
[2025-05-24 13:26] LABS: Hemoglobin 14.8 g/dl (12.0-16.0); Red Blood Count 4.60 X10*6/uL (4.20-5.50); White Blood Count 8.5 X10*3/uL (4.8-10.8)
[2025-05-24 13:27] LABS: Hematocrit 44.8 % (37.0-47.0); Imm Gran Abs Auto 0.02 X10*3/uL (0.00-0.03); Imm Gran Pct Auto 0.2 % (0.0-0.4); Lymphocytes Absolute Auto 1.0 X10*3/uL (1.2-4.9); Mean Corpuscular HGB Conc 33.0 g/dl (31.0-35.0); Mean Corpuscular Hemoglobin 32.2 pg (27.0-33.0); Mean Corpuscular Volume 97.4 fL (80.0-98.0); NRBC Abs Auto 0.000 X10*3/uL (0.0-0.012); NRBC Pct Auto 0.0 /100WBC (0.0-0.2); Platelet Count 301 X10*3/uL (160-400)
[2025-05-24 14:04] LABS: Alanine Aminotransferase 39 U/L (0-31); Albumin Level 4.8 g/dL (3.5-5.0); Alkaline Phosphatase 75 U/L (39-117); Anion Gap 10 (12-20); Aspartate Amino Transferase 33 U/L (5-31); Blood Urea Nitrogen 18 mg/dL (9-16); Calcium 9.4 mg/dL (8.4-10.2); Carbon Dioxide 27 mmol/L (22-29); Chloride 106 mmol/L (96-108); Cholesterol 162 mg/dL (<200); Estimated Glomerular Filt Rate > 60; HDL Cholesterol 67 mg/dL (>40); Potassium 4.1 mmol/L (3.3-5.1); Sodium 139 mmol/L (135-145); Total Protein 7.5 g/dL (6.5-8.0); Triglycerides 60 mg/dL (<150)
[2025-05-24 14:14] LABS: Free T4 (Free Thyroxine) 1.43 ng/dL (0.71-1.85); Thyroid Stimulating Hormone < 0.01 uIU/mL (0.32-4.0)
[2025-05-25 17:09] LABS: Thyroglobulin Antibodies <1 IU/mL (< or = 1)
== END 2025-05-24 12:28 | disposition home or self-care (01) ==
LOC: HO.LAB 12:27
PROVIDERS: PCP Internal Medicine; Visit Provider Internal Medicine
DX: R79.89 Other specified abnormal findings of blood chemistry (principal); E03.9 Hypothyroidism, unspecified; E78.00 Pure hypercholesterolemia, unspecified; D64.9 Anemia, unspecified
CPT/HCPCS: 36415; 80053; 80061; 84439; 84443; 84480; 85025; 86800